=== PATIENT | male | born 1940 | race Caucasian/White ===

== ENCOUNTER 2021-07-28 01:04 | Day surgery (SDC) | payer MEDICARE, BC, SELFPAY ==
[2021-07-27 13:51] VITALS: BMI 26.6
[2021-07-28 10:51] VITALS: BP 133/80; PULSE 49; RESP 14; TEMP 36.2; O2SAT 100
[2021-07-28 10:53] VITALS: BMI 26.6
--- NOTE | 2021-07-28 11:35 | WPDMODSED ---
Moderate Sedation Note-Pt Data Patient Data Diagnosis: Paroxysmal atrial fibrillation with palpitations Present Complaint: Palpitations Procedure to be performed/Plan: Implantation of loop recorder Allergies Allergy/AdvReac Type Severity Reaction Status Date / Time acetaminophen [From Percocet] Allergy Hypotension Verified 07/27/21 14:20 morphine AdvReac Hypotension Verified 07/27/21 14:20 Opioids - Morphine Analogues AdvReac Hypotension Verified 07/27/21 14:20 oxycodone AdvReac Nausea and Verified 07/27/21 14:20 Vomiting Home Medications Medication Instructions Recorded Confirmed Type apixaban [Eliquis] 5 mg PO BID 07/17/21 07/27/21 History atorvastatin 40 mg PO DAILY 07/17/21 07/27/21 History famotidine 20 mg PO HS 07/17/21 07/27/21 History ketoconazole 1 applic TOPICAL PRN 07/17/21 07/27/21 History meloxicam 15 mg PO PRN 07/17/21 07/27/21 History mometasone [Elocon] 0.1 applic TOPICAL PRN 07/17/21 07/27/21 History pantoprazole 40 mg PO DAILY 07/17/21 07/27/21 History pregabalin 75 mg PO BID 07/17/21 07/27/21 History sildenafil 100 mg PO PRN 07/17/21 07/27/21 History zolpidem 10 mg PO HS 07/17/21 07/27/21 History Sedation/Anesthesia: No previous sedation/anesthesia problems (including family history). PMFSH Social History Social History Smoking status: Never smoker Substance use type: does not use Living arrangements: with family Spiritual care concerns: No Mod Sed Physical Exam Physical Exam Pre Procedural Exam: Normal: Appearance (Pleasant elderly man no distress), Neck, Throat, Airway, Lungs, Heart Size, Heart Rate, Heart Rhythm, Neuro Exam and Extremities Hours since solid foods: 12 Hours since liquid intake: 12 Mallampati Classification: class II Internal Medicine - PN: Obj Da Vital Signs Vital Signs: Vital Signs - 24 hr 07/28/21 10:51 Temperature 36.2 C L Pulse Rate 49 L Respiratory Rate 14 Blood Pressure 133/80 Pulse Oximetry 100 ASA Classification/Sedation ASA Classification/Sedation ASA Class: II Emergent: No Risks: Risks, benefits and alternatives explained and patient/family accepted plan for sedation. Patient re-evaluated immediately prior to sedation.
[2021-07-28 11:38] VITALS: BP 133/80; PULSE 61; RESP 16; O2SAT 98
--- NOTE | 2021-07-28 11:56 | P.PCNCC_ITS ---
Cardiac Cath Procedure Note Date of procedure:: 07/28/21 Performing physician:: Angel Skinner MD Indication:: Paroxysmal atrial fibrillation with palpitation Procedure Procedure performed:: Implantation of Biotronik Biomonitor 3 loop recorder Access site:: Left anterior chest wall Estimated blood loss:: Minimal Procedure note:: Patient was brought to the ear mold laboratory technician holding area where the left anterior chest wall was prepped and draped in the usual fashion. A mary anne was made in the 4th intercostal space in the mid clavicular line. 20 cc of 1% lidocaine was injected to provide local anesthetic. The device was implanted then using the puncture blade for the creation of the pocket and using the insertion tool provided. Insertion of the loop recorder was uneventful. Manual pressure was held for a short time because of some cutaneous oozing. After this the wound was dressed with a drop of bio glue and a Band-Aid. Findings:: As above Conclusion:: Uneventful implantation of bio monitor 3 Biotronik loop recorder. Angel Skinner MD [facility]
[2021-07-28 12:05] VITALS: BP 134/78; PULSE 47; RESP 16; O2SAT 100
--- NOTE | 2021-07-28 13:12 | SUR.OPER ---
1220 - D/C instructions reviewed with pt.
== END 2021-07-28 12:20 | disposition home or self-care (01) ==
PROVIDERS: PCP Internal Medicine; Visit Provider Specialist
PROC: (CPT 33285; principal; 2021-07-28 11:30)
DX: I48.0 Paroxysmal atrial fibrillation (principal)
CPT/HCPCS: 33285; C1764

== ENCOUNTER 2025-02-20 18:54 | Emergency (ER) | payer MEDICARE, BC, SELFPAY ==
--- NOTE | ~2025-02-20 | XR_ITS ---
HISTORY: fall, prox humerus pain COMPARISON: None TECHNIQUE: 3 views of the right shoulder were performed FINDINGS: Post conventional right shoulder arthroplasty. Irregular transverse lucency within the glenoid fossa for which acute fracture is suspected. No periprosthetic fracture is appreciated within the right humerus. The acromioclavicular joint space demonstrates narrowing with osteophyte formation. The visualized portion of the adjacent right lung is clear. IMPRESSION: Possible acute fracture within the lower third of the glenoid fossa, as detailed above. Reviewed, dictated and finalized at location A. IMPRESSION: Possible acute fracture within the lower third of the glenoid lucina a, as detailed above.
--- NOTE | ~2025-02-20 | XR_ITS ---
HISTORY: fall medial pain COMPARISON: None TECHNIQUE: 4 views of the left knee were performed FINDINGS: No acute or subacute fracture, erosion, lytic or sclerotic lesion. Medial and lateral tibiofemoral joint space narrowing is identified with chondrocalcinosis within the tibiofemoral joint space. Osteophytic bridging is also noted. Narrowing of the patellofemoral joint space is present.. No suprapatellar joint effusion is identified. The infrapatellar joint space is clear. IMPRESSION: Significant degenerative disease without acute fracture. Reviewed, dictated and finalized at location A.
--- NOTE | ~2025-02-20 | XR_ITS ---
HISTORY: fall lt lower rib pain COMPARISON: None TECHNIQUE: 3 views of the left ribs were performed along with a PA view of the chest FINDINGS: No acute displaced fracture is appreciated. Bone mineralization is age-appropriate. Loop recorder projects to the left of midline. The remainder of the cardiomediastinal silhouette is otherwise unremarkable. The lungs are clear IMPRESSION: No acute displaced rib fracture. The lungs are clear. Reviewed, dictated and finalized at location A.
--- OUTSIDE RECORDS SUMMARY | 2025-02-20 18:57 | XMS_ITS | Patient Health Record ---
Author Organization [facility] [place] Address [address] [place] [address] Care Team Providers Care Outside Sales Representative Insurance Name Role Phone Jhonathan Caldwell Unavailable [phone] Allergies Allergen (clinical drug ingredient) Drug/Non Drug Allergy documented on EMR Reaction Allergy Type Onset Date Status morphine Morphine Sulfate (PF) Unknown Drug Allergy Active oxycodone Oxycodone HCl Unknown Drug Allergy Act gaby acetaminophen / oxycodone Percocet Unknown Drug Allergy Active Reason For Referral No Information Medications Medication SIG (Take, Route, Frequency, Duration) Notes Start Date End Date Status Zolpidem Tartrate ER 12.5 MG 1 tablet at bedtime as needed Orally Once a day Active Atorvastatin Calcium 40 MG 1 tablet Orally Once a day for 90 Active Ketoconazole 2 % (Prior Auth: Rx Ref#:[id number]) External for 15 Not-Taking Lyrica 75 MG 1 capsule Orally Twi ce a day for 90 days 01/04/2022 Active Gabapentin 300 MG 1 capsule Externally Once a day Active Meloxicam 15 MG 1 tablet Orally Once a day for 30 Active Pantoprazole Sodium 40 MG 1 tablet Orall y Once a day for 90 Active Aspirin 81 MG 1 tablet Orally Once a day Active traMADol HCl 50 MG (Schedule IV Drug) (Prior Auth: Rx Ref#:[id number]) Oral for 10 Not-Taking Celecoxib 200 MG (Prior Auth: Rx Ref#:[id number]) Oral for 30 Not-Taking HYDROcodone-Acetaminophen 5-325 MG (Schedule II Drug) (Prior Auth: Rx Ref#:[id number]) Oral for 10 Not-Taking Levitra 20 MG (Prior Auth: Rx Ref#:[id number]) Oral for 30 Not-Taking Social History Tobacco Use: Social History Observation Description Date Details (start date - stop date) Never Smoker NA - NA Tobacco Use/Smoking Question Answer Notes Are you a nonsmoker Problems Problem Type SNOMED Code ICD Code Onset Dates Problem Status W/U Status Risk Notes Problem 210724597516323 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) Active confirmed Problem 0253466 Radiculopathy of lumbosacral region (M54.17) Active confirmed Problem 02000959 DDD (degenerative disc disease), 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) Active confirmed Problem 14770942812451088 History of lumbar laminectomy (Z98.890) Active confirmed Plan Of Treatment No Information Insurance Providers Payer Name Payer Address Payer Phone Subscriber Number Group Number Insured Name Patient Relationship to Insured Coverage Start Date Coverage End Date MEDICARE SERVICES [address] [address] [place], [place] [id number] null, null Self - patient is the insured Medications Administered Medication Instructions Date of Administration Dosage Notes Bilateral L5/S1 SESI 10/06/2018 Bilateral L5/S1 SESI 02/16/2019 Bilateral L5/S1 SESI 09/22/2019 Bilateral L5/S1 SESI 03/30/2020 Bilateral L5/S1 SESI 09/13/2020 Caudal GINA 04/14/2018 Medical (General) History Medical History History ICD Code prostate cancer Skin cancer Surgical History Surgery Date(Month/Year) lumbar decompresion hip right shoulder Prostate removed toe Knee Face. tonsillectomy
--- OUTSIDE RECORDS SUMMARY | 2025-02-20 18:57 | XMS_ITS | Continuity of Care Document ---
Author Name [facility] Organization [facility] Care Team Providers Care Video Games Storywriter Name Role Phone [facility] Unavailable Unavailable Problems Combined list of problems from Department of Defense and Veterans Affairs facilities. It does not include entries that were removed or entered in error. Problem Status Onset Date Problem Type Date of Resolution Comments Source AF- Atrial Fibrillation (SCT 10492842) Active Condition [facility] Anticoagulant effect Active Condition [facility] Bilateral hearing loss (SCT 43941903) - Unspecified hearing loss (ICD-9-CM 389.9 Active Condition [facility] Carcinoma of prostate (SCT 059195025) - Malignant neoplasm of prostate (ICD-9-CM Active Condition [facility] Chronic low back pain Active Condition [facility] Erectile Dysfunction (SCT 778725742) Active Condition [facility] Exposure to potentially hazardous substance ([facility] [id number]) Active Condition Dec 12 4 Entered By: BETH DU Comment: Entered automatically through SINDY Problem List documentation program [facility] Exposure to potentially hazardous substance ([facility] [id number]) Active Condition February 04 4 Entered By: PERI UNGER Comment: Entered automatically through SINDY Problem List documentation program [facility] Gastroesophageal Reflux Disease (SCT 289394617) - Esophageal reflux (ICD-9-CM 53 Active Condition [facility] GERD - Gastro-Esophageal Reflux Disease (SCT 367325565) Active Condition [facility] Hyperlipidemia (SCT 96666918) Active Condition [facility] Hyperlipidemia (SCT 51725072) - Other and unspecified hyperlipidemia (ICD-9-CM 2 Active Condition [facility] Long-term current use of anticoagulant Active Condition [facility] OA - Osteoarthritis (SCT 347337854) Active Condition [facility] Paroxysmal atrial fibrillation Active Condition [facility] Peripheral neuropathic pain Active Condition Dec 29 1 Entered By: NANCY JARA Comment: RELATAED TO LUMBAR STENOSIS [facility] Routine General Medical Examination at a Health Care Facility * - Routine genera Active Condition [facility] Spinal stenosis of lumbar region Active Condition [facility] Therapeutic drug effect Active Condition [facility] VACCIN FOR INFLUENZA - Need for prophylactic vaccination and inoculation, influe Active Condition [facility] Diagnosis: ICD-10-CM Z51.81 Encounter for therapeutic drug level monitoring Active Diagnosis [facility] Diagnosis: ICD-10-CM I48.0 Paroxysmal atrial fibrillation Active Diagnosis [facility] Diagnosis: ICD-10-CM Z79.01 supervisor intermediates (current) use of anticoagulants Active Diagnosis [facility] Diagnosis: ICD-10-CM Z79.899 Other usp (current) drug therapy Active Diagnosis [facility] Medications Combined list of outpatient medications from Department of Defense and Veterans Affairs facilities.Medications provided include 1) outpatient medications from the last 15 months, and 2) patient-reported medications. Medication Details Route Status Patient Instructions Prescription Expires Prescription Number Last Dispense Date Ordering Provider Order Date Order Qty Source APIXABAN 5MG TAB TAKE ONE TABLET BY MOUTH TWICE A DAY FOR ANTICOAG ULATION ORAL ACTIVE 02/09/2026 [id number] RAGHU SRINIVASAN 2024 180 [facility] N APIXABAN 5MG TAB TAKE ONE TABLET BY MOUTH TWICE A DAY FOR ANTICOAG ULATION ORAL DISCONT INUED 06/27/2025 [id number] Maykel BENDER 2023 180 [facility] APIXABAN 5MG TAB TAKE ONE TABLET BY MOUTH TWICE A DAY FOR ANTICOAG ULATION ORAL DISCONT INUED 01/30/2025 [id number] Maykel BENDER 2023 180 [facility] ATORVASTATI N CA 40MG TAB TAKE ONE TABLET BY MOUTH DAILY ORAL ACTIVE GISSEL JAIMES 2022 [facility] ATORVASTATI N CA 80MG TAB TAKE ONE-HALF TABLET BY MOUTH ONCE A DAY ORAL ACTIVE Rommel GRIFFITHSISON 2023 [facility] CYANOCOBALA MIN 1000MCG TAB TAKE ONE TABLET BY MOUTH ONCE A DAY ORAL 01/29/2025 [id number] Maykel BENDER 2023 100 [facility] CYANOCOBALA MIN 1000MCG TAB TAKE ONE TABLET BY MOUTH ONCE A DAY ORAL ACTIVE GRIFFITHSRommel SUSAN 2023 [facility] FAMOTIDINE 20MG TAB TAKE ONE TABLET BY MOUTH ONCE A DAY ORAL ACTIVE Rommel GRIFFITHS 2023 [facility] FAMOTIDINE 20MG TAB TAKE ONE TABLET BY MOUTH AT BEDTIME ORAL ACTIVE ESTEFANI,A LDENE 2020 [facility] METOPROLOL TARTRATE 50MG TAB TAKE ONE-HALF TABLET BY MOUTH ONCE A DAY NEEDED ORAL ACTIVE Rommel GRIFFITHS 2023 [facility] PANTOPRAZOL E NA 40MG TAB,EC TAKE ONE TABLET BY MOUTH EVERY MORNING BEFORE A MEAL ORAL ACTIVE Rommel GRIFFITHS 2023 [facility] PANTOPRAZOL E NA 40MG TAB,EC TAKE ONE TABLET BY MOUTH EVERY MORNING BEFORE EATING ORAL ACTIVE ESTEFANI,A LDENE 2020 [facility] POTASSIUM CHLORIDE 20MEQ TAB,SA (DISPERSIBL E) TAKE ONE-HALF TABLET BY MOUTH ONCE A DAY ORAL ACTIVE Rommel GRIFFITHS 2023 [facility] TADALAFIL 20MG TAB TAKE ONE TABLET BY MOUTH EVERY WEEK NEEDED ORAL ACTIVE Rommel GRIFFITHS 2023 [facility] VARDENAFIL HCL 20MG TAB TAKE ONE TABLET BY MOUTH UD ORAL ACTIVE CODLING,A LDENE 2020 [facility] ZOLPIDEM TARTRATE 10MG TAB TAKE ONE TABLET BY MOUTH AT BEDTIME NEEDED ORAL ACTIVE CODLING,A LDENE 2020 [facility] ZOLPIDEM TARTRATE 5MG TAB TAKE ONE TABLET BY MOUTH AT BEDTIME NEEDED ORAL ACTIVE Rommel GRIFFITHS [address] [facility] Allergies, Adverse Reactions, Alerts Combined list of allergies from Department of [facility] and [facility] Affairs facilities. It does not include entries that were removed or entered in error. Substance Category Reaction Severity Reaction type Status Date Reported Comments Source MORPHINE Propensity to adverse reactions to drug (finding) active 3 [facility] MORPHINE Propensity to adverse reactions to drug (finding) Bradycardi a, Low blood pressure active 1 [facility] PERCOCET Propensity to adverse reactions to drug (finding) Low blood pressure active 3 [facility] Immunizations Combined list of available immunizations from the Department of [facility] and [facility] Affairs facilities. Immunization Series Date Given Administered By Site Reaction Lot Number CVX Code Drug Bowling Ball Finisher Status Comments Source TDAP 2022 ASHLYN MACHADO RIGHT DELTO ID [id number] 115 complet ed [facility] ZOSTER RECOMBINANT 2 2022 ASHLYN MACHADO LEFT DELTO ID [id number] 187 complet ed [facility] ZOSTER RECOMBINANT 1 2021 187 complet ed [facility] INFLUENZA, UNSPECIFIED FORMULATION 2 2021 88 complet ed HISTORICA L INFORMATI ON - FROM OTHER [facility], [facility] N INFLUENZA VACCINE, QUADRIVALENT, ADJUVANTED 2 2021 205 complet ed HISTORICA L INFORMATI ON - FROM OTHER [facility], [facility], [facility] N INFLUENZA, UNSPECIFIED FORMULATION 2020 88 complet ed [facility] INFLUENZA, UNSPECIFIED FORMULATION 1 2020 88 complet ed HISTORICA L INFORMATI ON - FROM OTHER [facility], [facility], [facility] N COVID-19 (HuddleApp), MRNA, LNP-S, PF, 30 MCG/0.3 ML DOSE 2 2020 208 complet ed HISTORICA L INFORMATI ON - FROM OTHER [facility], [facility] N COVID-19 (HuddleApp), MRNA, LNP-S, PF, 30 MCG/0.3 ML DOSE 1 2020 208 complet ed HISTORICA L INFORMATI ON - FROM OTHER REGISTRY, [facility] N INFLUENZA, HIGH-DOSE, QUADRIVALENT 1 2019 197 complet ed HISTORICA L INFORMATI ON - FROM OTHER REGISTRY, [facility] N INFLUENZA, UNSPECIFIED FORMULATION 2019 88 complet ed [facility] INFLUENZA, TRIVALENT, ADJUVANTED 2019 168 complet ed [facility] INFLUENZA, HIGH DOSE SEASONAL 1 2018 135 complet ed HISTORICA L INFORMATI ON - FROM OTHER REGISTRY, [facility] N INFLUENZA, UNSPECIFIED FORMULATION 2 2018 88 complet ed HISTORICA L INFORMATI ON - FROM OTHER REGISTRY, [facility] N INFLUENZA, UNSPECIFIED FORMULATION 2 2017 88 complet ed HISTORICA L INFORMATI ON - FROM OTHER REGISTRY, [facility] N INFLUENZA, HIGH DOSE SEASONAL 1 2017 135 complet ed HISTORICA L INFORMATI ON - FROM OTHER REGISTRY, [facility] N INFLUENZA, SEASONAL, INJECTABLE 1 2013 141 complet ed HISTORICA L INFORMATI ON - FROM OTHER REGISTRY, [facility] N INFLUENZA, UNSPECIFIED FORMULATION 2012 88 complet ed [facility] PNEUMOCOCCAL, UNSPECIFIED FORMULATION 2012 109 complet ed [facility] TD(ADULT) UNSPECIFIED FORMULATION 2012 139 complet ed Right Deltoid [facility] TDAP 2012 115 complet ed Right Deltoid [facility] PNEUMOCOCCAL POLYSACCHARID E PPV23 2012 33 complet ed [facility] Results Combined list of recent chemistry, hematology and other laboratory results from Department of Defense and Veterans Affairs, ranging from 15 months to all on record, depending upon the facility. Order Name Results Value Reference Range Date Interpretation Specimen Comments Source TSH W/ REFLEX FT4 (STL) THYROTROPIN [UNITS/VOLUM E] IN SERUM OR PLASMA 2.298 u[IU]/ mL 0.47 - 5 01/28 Specimen Type: PLASMA Comment: No hemolysis noted. Ordering Provider: NANCY BENDER Report Released Date/Time: January 29, 2024 01:09 PM Reporting Lab: [facility] [address] [facility] [address] Performing Lab: [facility] [address] [facility] [address] [facility] VITAMIN D, 25-HYDROXY 25-HYDROXYVI TAMIN D3 [MASS/VOLUME ] IN SERUM OR PLASMA 31.6 ng/mL 30 - 96 01/28 Specimen Type: SERUM No comment entered. Ordering Provider: NANCY BENDER Report Released Date/Time: January 29, 2024 01:09 PM Reporting Lab: [facility] [address] [place] [phone] Performing Lab: [facility] [address] [place] [phone] [facility] COMPREHENSI VE METABOLIC PANEL CREATININE [MASS/VOLUME ] IN SERUM OR PLASMA 1.17 mg/dL 0.7 - 1.3 01/28 Specimen Type: PLASMA Comment: No hemolysis noted. Ordering Provider: NANCY BENDER Report Released Date/Time: January 29, 2024 01:09 PM Reporting Lab: [facility] [address] [facility] [address] Performing Lab: [facility] [address] [facility] [address] [facility] COMPREHENSI VE METABOLIC PANEL UREA NITROGEN [MASS/VOLUME ] IN SERUM OR PLASMA 16.8 mg/dL 9.0 - 25.0 01/28 Specimen Type: PLASMA Comment: No hemolysis noted. Ordering Provider: NANCY BENDER Report Released Date/Time: January 29, 2024 01:09 PM Reporting Lab: [facility] [address] [facility] [address] Performing Lab: [facility] [address] [place] [phone] [facility] COMPREHENSI VE METABOLIC PANEL GLUCOSE [MASS/VOLUME ] IN SERUM OR PLASMA 98 mg/dL 72 - 99 01/28 Specimen Type: PLASMA Comment: No hemolysis noted. Ordering Provider: NANCY BENDER Report Released Date/Time: January 29, 2024 01:09 PM Reporting Lab: [facility] [address] [facility] [phone] Performing Lab: [facility] [address] [facility] [address] [facility] COMPREHENSI VE METABOLIC PANEL SODIUM [MOLES/VOLUM E] IN SERUM OR PLASMA 135 meq/L 136 - 145 01/28 L Specimen Type: PLASMA Comment: No hemolysis noted. Ordering Provider: NANCY BENDER Report Released Date/Time: January 29, 2024 01:09 PM Reporting Lab: [facility] [address] [facility] [address] Performing Lab: [facility] [address] [place] [phone] [facility] COMPREHENSI VE METABOLIC PANEL POTASSIUM [MOLES/VOLUM E] IN SERUM OR PLASMA 5.0 meq/L 3.5 - 5 01/28 Specimen Type: PLASMA Comment: No hemolysis noted. Ordering Provider: NANCY BENDER Report Released Date/Time: January 29, 2024 01:09 PM Reporting Lab: [facility] [address] [facility] [phone] Performing Lab: [facility] [address] [facility] [phone] [facility] COMPREHENSI VE METABOLIC PANEL CHLORIDE [MOLES/VOLUM E] IN SERUM OR PLASMA 103 meq/L 98 - 107 01/28 Specimen Type: PLASMA Comment: No hemolysis noted. Ordering Provider: NANCY BENDER Report Released Date/Time: January 29, 2024 01:09 PM Reporting Lab: [facility] [address] [facility] [phone] Performing Lab: [facility] [address] [facility] [phone] [facility] COMPREHENSI VE METABOLIC PANEL CARBON DIOXIDE, TOTAL [MOLES/VOLUM E] IN SERUM OR PLASMA 24 meq/L 22 - 01/28 Specimen Type: PLASMA Comment: No hemolysis noted. Ordering Provider: NANCY BENDER Report Released Date/Time: January 29, 2024 01:09 PM Reporting Lab: [facility] [address] [facility] [facility] [address] Performing Lab: [facility] [address] [facility] [facility] [phone] [place] [address] COMPREHENSI VE METABOLIC PANEL CALCIUM [MASS/VOLUME ] IN SERUM OR PLASMA 9.9 mg/dL 8.4 - 10.4 01/28 Specimen Type: PLASMA Comment: No hemolysis noted. Ordering Provider: NANCY BENDER Report Released Date/Time: January 29, 2024 01:09 PM Reporting Lab: [address] [phone] Performing Lab: [facility] [address] [facility] [address] [facility] COMPREHENSI VE METABOLIC PANEL PROTEIN [MASS/VOLUME ] IN SERUM OR PLASMA 7.4 g/dL 6 - 8.6 01/28 Specimen Type: PLASMA Comment: No hemolysis noted. Ordering Provider: NANCY BENDER Report Released Date/Time: January 29, 2024 01:09 PM Reporting Lab: [facility] [address] [place] [phone] Performing Lab: [facility] [address] [facility] [facility] [address] [facility] COMPREHENSI VE METABOLIC PANEL ALBUMIN [MASS/VOLUME ] IN SERUM OR PLASMA 4.1 g/dL 3.4 - 5 01/28 Specimen Type: PLASMA Comment: No hemolysis noted. Ordering Provider: NANCY BENDER Report Released Date/Time: January 29, 2024 01:09 PM Reporting Lab: [facility] [address] [facility] [address] Performing Lab: [facility] [address] [facility] [phone] [facility] COMPREHENSI VE METABOLIC PANEL BILIRUBIN.TO MATT [MASS/VOLUME ] IN SERUM OR PLASMA 0.9 mg/dL 0.2 - 1.2 01/28 Specimen Type: PLASMA Comment: No hemolysis noted. Ordering Provider: NANCY BENDER Report Released Date/Time: January 29, 2024 01:09 PM Reporting Lab: [address] [phone] Performing Lab: [address] [phone] COMPREHENSI VE METABOLIC PANEL ALKALINE PHOSPHATASE [ENZYMATIC ACTIVITY/VOL UME] IN SERUM OR PLASMA 120 U/L 40 - 150 01/28 Specimen Type: PLASMA Comment: No hemolysis noted. Ordering Provider: NANCY BENDER Report Released Date/Time: January 29, 2024 01:09 PM Reporting Lab: [address] [phone] Performing Lab: [phone] [place] [address] COMPREHENSI VE METABOLIC PANEL ASPARTATE AMINOTRANSFE RASE [ENZYMATIC ACTIVITY/VOL UME] IN SERUM OR PLASMA 27 U/L 5 - 34 01/28 Specimen Type: PLASMA Comment: No hemolysis noted. Ordering Provider: NANCY BENDER Report Released Date/Time: January 29, 2024 01:09 PM Reporting Lab: [facility] [address] [place] [phone] Performing Lab: [address] [phone] [place] [address] COMPREHENSI VE METABOLIC PANEL ALANINE AMINOTRANSFE RASE [ENZYMATIC ACTIVITY/VOL UME] IN SERUM OR PLASMA 18 U/L 8 - 40 01/28 Specimen Type: PLASMA Comment: No hemolysis noted. Ordering Provider: NANCY BENDER Report Released Date/Time: January 29, 2024 01:09 PM Reporting Lab: [facility] [address] [facility] [address] Performing Lab: [facility] [address] [facility] [address] [facility] COMPREHENSI VE METABOLIC PANEL GLOMERULAR FILTRATION RATE/1.73 SQ M.PREDICTED [VOLUME RATE/AREA] IN SERUM, PLASMA OR BLOOD BY CREATININE-B ASED FORMULA (CKD-EPI 2020) 61.9 60 01/28 Specimen Type: PLASMA Comment: No hemolysis noted. Ordering Provider: NANCY BENDER Report Released Date/Time: January 29, 2024 01:09 PM Reporting Lab: [facility] [address] [facility] [phone] Performing Lab: [facility] [address] [place] [phone] [facility] LIPID PANEL (STL) CHOLESTEROL [MASS/VOLUME ] IN SERUM OR PLASMA 149 mg/dL 0 - 200 01/28 Specimen Type: PLASMA Comment: No hemolysis noted. Ordering Provider: NANCY BENDER Report Released Date/Time: January 29, 2024 01:09 PM Reporting Lab: [facility] [address] [facility] [phone] Performing Lab: [facility] [address] [place] [phone] [facility] LIPID PANEL (STL) TRIGLYCERIDE [MASS/VOLUME ] IN SERUM OR PLASMA 78 mg/dL 0 - 150 01/28 Specimen Type: PLASMA Comment: No hemolysis noted. Ordering Provider: NANCY BENDER Report Released Date/Time: January 29, 2024 01:09 PM Reporting Lab: [facility] [address] [facility] [phone] Performing Lab: [facility] [address] [facility] [phone] [facility] LIPID PANEL (STL) CHOLESTEROL IN LDL [MASS/VOLUME ] IN SERUM OR PLASMA BY CALCULATION 87 mg/dL 01/28 Specimen Type: PLASMA Comment: No hemolysis noted. Ordering Provider: NANCY BENDER Report Released Date/Time: January 29, 2024 01:09 PM Reporting Lab: [facility] [address] [place] [phone] Performing Lab: [facility] [address] [place] [phone] [facility] LIPID PANEL (STL) CHOLESTEROL IN HDL [MASS/VOLUME ] IN SERUM OR PLASMA 46 mg/dL 40 01/28 Specimen Type: PLASMA Comment: No hemolysis noted. Ordering Provider: NANCY BENDER Report Released Date/Time: January 29, 2024 01:09 PM Reporting Lab: [facility] [address] [place] [phone] Performing Lab: [facility] [address] [place] [phone] [facility] CBC LEUKOCYTES [#/VOLUME] IN BLOOD BY AUTOMATED COUNT 8.1 10*3/u L 3.6 - 11.2 01/28 Specimen Type: BLOOD No comment entered. Ordering Provider: NANCY BENDER Report Released Date/Time: January 29, 2024 01:09 PM Reporting Lab: [facility] [address] [facility] [phone] Performing Lab: [facility] [address] [place] [phone] [facility] CBC ERYTHROCYTES [#/VOLUME] IN BLOOD BY AUTOMATED COUNT 4.64 10*6/u L 4.10 - 5.70 01/28 Specimen Type: BLOOD No comment entered. Ordering Provider: NANCY BENDER Report Released Date/Time: January 29, 2024 01:09 PM Reporting Lab: [facility] [address] [facility] [address] Performing Lab: [facility] [address] [place] [phone] [facility] CBC HEMOGLOBIN [MASS/VOLUME ] IN BLOOD 14.1 g/dL 13.1 - 16.8 01/28 Specimen Type: BLOOD No comment entered. Ordering Provider: NANCY BENDER Report Released Date/Time: January 29, 2024 01:09 PM Reporting Lab: [facility] [address] [place] [phone] Performing Lab: [facility] [address] [place] [phone] [place] [address] CBC HEMATOCRIT [VOLUME FRACTION] OF BLOOD 41.7 38.2 - 48.4 01/28 Specimen Type: BLOOD No comment entered. Ordering Provider: NANCY BENDER Report Released Date/Time: January 29, 2024 01:09 PM Reporting Lab: [facility] [address] [place] [phone] Performing Lab: [facility] [address] [place] [phone] [place] [address] CBC MCV [ENTITIC VOLUME] BY AUTOMATED COUNT 89.9 fL 80.0 - 100.0 01/28 Specimen Type: BLOOD No comment entered. Ordering Provider: NANCY BENDER Report Released Date/Time: January 29, 2024 01:09 PM Reporting Lab: [facility] [address] [place] [phone] Performing Lab: [facility] [address] [place] [phone] [place] [address] CBC MCH [ENTITIC MASS] BY AUTOMATED COUNT 30.4 pg 27.0 - 34.0 01/28 Specimen Type: BLOOD No comment entered. Ordering Provider: NANCY BENDER Report Released Date/Time: January 29, 2024 01:09 PM Reporting Lab: [facility] [address] [place] [phone] Performing Lab: [facility] [address] [place] [phone] [facility] CBC MCHC [MASS/VOLUME ] BY AUTOMATED COUNT 33.8 g/dL 33.0 - 36.0 01/28 Specimen Type: BLOOD No comment entered. Ordering Provider: NANCY BENDER Report Released Date/Time: January 29, 2024 01:09 PM Reporting Lab: [facility] [address] [place] [phone] Performing Lab: [facility] [address] [place] [phone] [facility] CBC PLATELETS [#/VOLUME] IN BLOOD BY AUTOMATED COUNT 209 10*3/u L 150 - 400 01/28 Specimen Type: BLOOD No comment entered. Ordering Provider: NANCY BENDER Report Released Date/Time: January 29, 2024 01:09 PM Reporting Lab: [facility] [address] [place] [phone] Performing Lab: [facility] [address] [place] [phone] [place] [address] CBC PLATELET MEAN VOLUME [ENTITIC VOLUME] IN BLOOD BY AUTOMATED COUNT 12.6 fL 7.5 - 11.2 01/28 H Specimen Type: BLOOD No comment entered. Ordering Provider: NANCY BENDER Report Released Date/Time: January 29, 2024 01:09 PM Reporting Lab: [facility] [address] [place] [phone] Performing Lab: [facility] [address] [place] [phone] [place] [address] CBC ERYTHROCYTE DISTRIBUTION WIDTH [RATIO] BY AUTOMATED COUNT 12.8 11.8 - 15.1 01/28 Specimen Type: BLOOD No comment entered. Ordering Provider: NANCY BENDER Report Released Date/Time: January 29, 2024 01:09 PM Reporting Lab: [facility] [address] [place] [phone] Performing Lab: [facility] [address] [place] [phone] [facility] CBC LYMPHOCYTES/ 100 LEUKOCYTES IN BLOOD BY AUTOMATED COUNT 42 01/28 Specimen Type: BLOOD No comment entered. Ordering Provider: NANCY BENDER Report Released Date/Time: January 29, 2024 01:09 PM Reporting Lab: [facility] [address] [facility] [address] Performing Lab: [facility] [address] [facility] [address] [facility] CBC MONOCYTES/10 0 LEUKOCYTES IN BLOOD BY AUTOMATED COUNT 8 01/28 Specimen Type: BLOOD No comment entered. Ordering Provider: NANCY BENDER Report Released Date/Time: January 29, 2024 01:09 PM Reporting Lab: [facility] [address] [facility] [address] Performing Lab: [facility] [address] [facility] [address] [facility] CBC NEUTROPHILS/ 100 LEUKOCYTES IN BLOOD BY AUTOMATED COUNT 49 01/28 Specimen Type: BLOOD No comment entered. Ordering Provider: NANCY BENDER Report Released Date/Time: January 29, 2024 01:09 PM Reporting Lab: [facility] [address] [facility] [address] Performing Lab: [facility] [address] [facility] [address] [facility] CBC EOSINOPHILS/ 100 LEUKOCYTES IN BLOOD BY AUTOMATED COUNT 1 01/28 Specimen Type: BLOOD No comment entered. Ordering Provider: NANCY BENDER Report Released Date/Time: January 29, 2024 01:09 PM Reporting Lab: [facility] [address] [facility] [address] Performing Lab: [facility] [address] [facility] [address] [facility] CBC BASOPHILS/10 0 LEUKOCYTES IN BLOOD BY AUTOMATED COUNT 0 01/28 Specimen Type: BLOOD No comment entered. Ordering Provider: NANCY BENDER Report Released Date/Time: January 29, 2024 01:09 PM Reporting Lab: [facility] [address] [facility] [address] Performing Lab: [facility] [address] [facility] [address] [facility] CBC LYMPHOCYTES [#/VOLUME] IN BLOOD BY AUTOMATED COUNT 3.35 10*3/u L 0.77 - 4.50 01/28 Specimen Type: BLOOD No comment entered. Ordering Provider: NANCY BENDER Report Released Date/Time: January 29, 2024 01:09 PM Reporting Lab: [address] [address] Performing Lab: [address] [phone] [place] [address] CBC MONOCYTES [#/VOLUME] IN BLOOD BY AUTOMATED COUNT 0.65 10*3/u L 0.19 - 0.80 01/28 Specimen Type: BLOOD No comment entered. Ordering Provider: NANCY BENDER Report Released Date/Time: January 29, 2024 01:09 PM Reporting Lab: [address] [address] Performing Lab: [phone] [place] [address] CBC NEUTROPHILS [#/VOLUME] IN BLOOD BY AUTOMATED COUNT 3.98 10*3/u L 2.10 - 8.00 01/28 Specimen Type: BLOOD No comment entered. Ordering Provider: NANCY BENDER Report Released Date/Time: January 29, 2024 01:09 PM Reporting Lab: [facility] [address] [place] [address] Performing Lab: [address] [address] [facility] CBC EOSINOPHILS [#/VOLUME] IN BLOOD BY AUTOMATED COUNT 0.05 10*3/u L 0.00 - 0.60 01/28 Specimen Type: BLOOD No comment entered. Ordering Provider: NANCY BENDER Report Released Date/Time: January 29, 2024 01:09 PM Reporting Lab: [facility] [address] [facility] [address] Performing Lab: [address] [address] [facility] CBC BASOPHILS [#/VOLUME] IN BLOOD BY AUTOMATED COUNT 0.03 10*3/u L 0.00 - 0.20 01/28 Specimen Type: BLOOD No comment entered. Ordering Provider: NANCY BENDER Report Released Date/Time: January 29, 2024 01:09 PM Reporting Lab: [address] [address] Performing Lab: [address] [address] [facility] HGA1C HEMOGLOBIN A1C/HEMOGLOB IN.TOTAL IN BLOOD 5.8 4.0 - 6.0 01/28 Specimen Type: BLOOD No comment entered. Ordering Provider: NANCY BENDER Report Released Date/Time: January 29, 2024 01:09 PM Reporting Lab: [address] [address] Performing Lab: [address] [address] [facility] Encounters Combined list of: 1) Encounters from Department of [facility] Affairs facilities going backup to the last 18 months, not all [place] inpatient encounters are included; 2) Encounters from the Department of Defense facilities going backup to 280 months. Location Location Details Encounter Type Encounter Number Reason For Visit Attending Provider ADM Date DC Date Status Disposition Source [facility] Outpatient Encounter [id number] 12/29 [facility] Outpatient Encounter [id number] 12/30 [facility] CASE MANAGEMENT [id number] KATELIN BUSTAMANTE 12/30 [facility] Outpatient Encounter [id number] GRIFFITHSANTHONY 01/05 [facility] MTMS BY PHARM ADDL 15 MIN [id number] Diagnos is: ICD-10- CM Z79.899 Other usp (curren t) drug therapy AYEANTHONY Rommel 01/05 [facility] MTMS BY PHARM EST 15 MIN [id number] Diagnos is: ICD-10- CM Z79.01 supervisor intermediates (curren t) use of anticoa gulanSTEFAN Montoya 01/22 [facility] OFF[facility] O/P NEW MOD 45 MIN [id number] Diagnos is: ICD-10- CM I48.0 Paroxys mal atrial fibrill ation NANCY BENDER 01/28 [facility] QNHP OL DIG ASSMT&MGMT 5-10 [id number] Diagnos is: ICD-10- CM I48.0 Paroxys mal atrial fibrill ation BELLA LEVI 01/29 [facility] MTMS BY PHARM EST 15 MIN [id number] Diagnos is: ICD-10- CM Z51.81 Encount er for therape utic drug level monitor EUSEBIA Rudolph 01/29 [facility] Outpatient Encounter [id number] 06/09 [facility] Outpatient Encounter [id number] 08/24 [facility] Outpatient Encounter [id number] 08/26 [facility] Outpatient Encounter [id number] 01/28 [facility] MTMS BY PHARM EST 15 MIN [id number] Diagnos is: ICD-10- CM Z51.81 Encount er for therape utic drug level monitor EUSEBIA Rudolph 02/08 [facility] Social History Combined list of available smoking, tobacco, and other social history from Department of Defense and Veterans Affairs facilities. Social History Type Response Date Comment Sourc e Tobacco smoking status NHIS [place]-TOBACCO NEVER USED 01/06/2024 [facility] History of tobacco use ND-TOBACCO NEVER USED 12/18/2022 [facility] History of tobacco use ND-TOBACCO NEVER USED 12/29/2020 [facility] History of tobacco use LIFETIME NON-USER OF TOBACCO 08/19/2013 [facility] Plan of Care List of future care activities from Department of Veterans Affairs facilities. Additional future care activities may be listed in the Assessment and Plan section. Date/Time Care Activity Care Activity Detail Facili ty 03/16/2025 AMBULATORY - MEDICINE AMBULATORY - MEDICI NE [facility]
--- OUTSIDE RECORDS SUMMARY | 2025-02-20 18:58 | XMS_ITS | Encounter Summary ---
Author Organization [facility] Address 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
--- OUTSIDE RECORDS SUMMARY | 2025-02-20 18:58 | XMS_ITS | Clinical Summary ---
Author Organization [facility] Address [address] [facility] [address] 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
--- OUTSIDE RECORDS SUMMARY | 2025-02-20 18:58 | XMS_ITS | Encounter Summary ---
Author Organization [employer] Address [address] [place] [address] Care Team Providers Care Alternative Medicine Practitioner Name Role Phone Andreia Wolf MD Primary Care Provider [phone] Encounter Details Date Type Department Care Team (Late st Contact Info) Description 02/27/2005 Outpatient Historical [facility] EM[facility] Deon Montalvo MD [address] 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
--- OUTSIDE RECORDS SUMMARY | 2025-02-20 18:58 | XMS_ITS | Encounter Summary ---
Author Organization [facility] Address [address] [facility] [address] [place] [address] Care Team Providers Care Radio Program Checker Name Role Phone Mikal Thomason MD Primary Care Provider [phone] Cynthia Donohue RN Unavailable [phone] Mariana Jay MD Primary Care Provide r Anette Montgomery MD Unavailable [phone] Lamont Richter MD Unavailable Encounter Details Date Type Department Care Team (Late st Contact Info) Description 09/17/2016 Orders Only [facility] Provider, MD Hanna [address] [place] [address] Social History Tobacco Use Types Packs/Day Years Used Date Smoking Tobacco: Never Alcohol Use Standard Drinks/Week Comments No 0 (1 standard drink = 0.6 oz pur e alcohol) Sex and Gender Information Value Date Recorded Sex Assigned at Not on file 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 Historical Provider [facility] DEBO SHEIKH Final Result documented in this encounter Visit Diagnoses Not on filedocumented in this encounter Additional Health Concerns Infection Onset Date Last Indicated Resolved Time COVID: Suspected 06/02/2021 06/02/2021 06/02/2021 4:12 PM CDT COVID: Suspected 07/13/2021 07/13/2021 07/13/2021 2:52 PM CDT COVID: Suspected 08/26/2023 08/26/2023 08/26/2023 7:07 PM PLASTIC SURGERY MANAGER COVID: Suspected 11/20/2023 11/20/2023 11/20/2023 8:25 PM CDT documented as of this encounter Care Teams Radio Program Checker Relationship Specialty Start Date End Date Mikal Thomason MD PCP - General 09/12/15 04/11/22 Mariana Jay MD [address] [place] [address] [address] [place] [address] PCP - General Family Medicine 04/12/22 Cynthia Donohue, MAGGIE [address] [place] [address] [address] [place] [address] Assistant Golf Professional 06/08/21 07/10/21 Anette Montgomery MD [address] [place] [address] [address] [place] [address] Consulting Physician Cardiology 04/12/22 04/22/24 [place] [address] [place] [address] [address] Consulting Physician Cardiovascular Disease 04/23/24 documented as of this encounter
--- OUTSIDE RECORDS SUMMARY | 2025-02-20 18:58 | XMS_ITS | Patient Health Record ---
Author Organization [facility] Address [address] [place] [address] Care Team Providers Care Heating And Blending Supervisor Name Role Phone Valery Prabhakar Unavailable [phone] Allergies Allergen (clinical drug ingredient) Drug/Non Drug Allergy documented on EMR Reaction Allergy Type Onset Date Status acetaminophen / oxycodone Percocet Unknown Drug Allergy 11/17/2021 active morphine Morphine Unknown Drug Allergy 10/26/2019 active oxycodone Oxycodone Unknown Drug Allergy 10/26/2019 active Reason For Referral No Information Medications Medication SIG (Take, Route, Frequency, Duration) Notes Start Date End Date Status Metoprolol Tartrate 25 MG Oral for 90 Days Active Albuterol Sulfate HFA 108 (90 Base) MCG/ACT Inhalation for 16 Days Active guaiFENesin-Codeine 100-10 MG/5ML Oral for 4 Days Active Eliquis Active Zolpidem Tartrate 10 MG Oral for 30 Days Active Atorvastatin Calcium 40 MG Oral for 90 Days Active Pantoprazole Sodium 40 MG Oral for 90 Days Active Famotidine 20 MG Oral for 90 Days Active Vital Signs Heart Rate 51 BPM 11/08/2024 Temperature 98.0 degrees Fahrenheit 11/08/2024 Respiratory Rate 18 BPM 11/08/2024 Oximetry 96 % 11/08/2024 Blood pressure diastolic 68 mm/Hg 11/08/2024 Height 67.00 in 11/08/2024 Blood pressure systolic 124 mm/Hg 11/08/2024 Weight 170 lbs 11/08/2024 BMI 26.62 kg/m2 11/08/2024 Encounters Encounter Location Date Provider Diagnosis [facility] [address] [place] [address] 11/08/2024 Valery Prabhakar Acute non-recurrent sinusitis, unspecified location J01.90 Assessments Encounter Date Diagnosis (ICD Code) Assessment Notes Treatment Notes Treatment Clinical Notes Section Notes 11/08/2024 Acute non-recurrent sinusitis, unspecified location (ICD-10 - J01.90) As needed Analgesics (Mortrin or Tylenol) Nasal saline irrigation for symptomatic relief Take medications as Directed Return to clinic after 72 hours if no improvement Encourage Fluids Cool mist humidifier at night - Seek medical care if develop high fever that is still present after two days of antibiotic treatment, Increasing pain, severe headaches, or toothache, nausea, vomiting, headache, dizziness or drowsiness. Unusual swelling around the face or trouble seeing POC discussed with pt. who verbalized understanding of instructions. Plan Of Treatment No Information Insurance Providers Payer Name Payer Address Payer Phone Subscriber Number Group Number Insured Name Patient Relationship to Insured Coverage Start Date Coverage End Date MEDICARE [place] PART B [address] [address] [place] [phone] [id number] DEION WADDELL Self - patient is the insured [facility] [address] [place] [address] [id number] DEION WADDELL Self - patient is the insured Medical (General) History Medical History History ICD Code A- Fib
--- OUTSIDE RECORDS SUMMARY | 2025-02-20 18:58 | XMS_ITS | Encounter Summary ---
Author Organization [facility] Address 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
--- OUTSIDE RECORDS SUMMARY | 2025-02-20 18:58 | XMS_ITS | Encounter Summary ---
Author Organization [facility] Address 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
--- OUTSIDE RECORDS SUMMARY | 2025-02-20 18:58 | XMS_ITS | Encounter Summary ---
Author Organization [facility] Address 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 Gender Identity Not on file Sexual Orientation Not on file documented as of this encounter Plan of Treatment Not on file documented as of this encounter Procedures Procedure Name Priority Date/Time Associated Diagnosis Comments HEPATIC FUNCTION PANEL Routine 05/01/2005 9:22 AM CDT documented in this encounter Results * HEPATIC FUNCTION PANEL (05/01/2005 9:22 AM CDT) AST 23 12 - 38 U/L INTERFACE SYSTEM ALKALINE PHOSPHATASE 120 40 - 129 U/L INTERFACE SYSTEM BILIRUBIN TOTAL 0.6 0.2 - 1.0 mg/dL INTERFACE SYSTEM ALBUMIN 4.1 3.4 - 4.8 g/dL INTERFACE SYSTEM TOTAL PROTEIN 7.8 6.3 - 8.6 g/dL INTERFACE SYSTEM ALT 18 0 - 41 U/L INTERFACE SYSTEM BILIRUBIN DIRECT 0.1 0.0 - 0.3 mg/dL INTERFACE SYSTEM 05/01/2005 9:22 AM CDT us Andreia Wolf MD CHEMISTRY ORDERABLES Final Re sult INTERFACE SYSTEM Refer to clinic/hospital department documented in this encounter Visit Diagnoses Diagnosis Other abnormal clinical finding- Primary documented in this encounter Care Teams Supervisor Slashing Department Relationship Specialty Start Date End Date Andreia Wolf MD [address] [place] [address] PCP - General 05/01/05 documented as of this encounter
--- OUTSIDE RECORDS SUMMARY | 2025-02-20 18:58 | XMS_ITS | Encounter Summary ---
Author Organization [facility] Address [address] [place] [address] Phone Care Team Providers Care Piping Blocker Name Role Phone Mikal Thomason MD Primary Care Provider [phone] Cynthia Donohue RN Unavailable [phone] Mariana Jay MD Primary Care Provide r Anette Montgomery MD Unavailable [phone] Lamont Richter MD Unavailable Encounter Details Date Type Department Care Team (Late st Contact Info) Description 09/04/2017 Orders Only [facility] ProviderHanna MD [address] [place] [address] Social History Tobacco Use Types Packs/Day Years Used Date Smoking Tobacco: Never Smokeless Tobacco: Never Alcohol Use Standard Drinks/Week Comments No 0 (1 standard drink = 0.6 oz pur e alcohol) Sex and Gender Information Value Date Recorded Sex Assigned at Not on file Legal Sex Male 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 us Historical Provider LAB BLOOD ORDERABLES Mona l Result documented in this encounter Visit Diagnoses Not on filedocumented in this encounter Additional Health Concerns Infection Onset Date Last Indicated Resolved Time COVID: Suspected 06/02/2021 06/02/2021 06/02/2021 4:12 PM CDT COVID: Suspected 07/13/2021 07/13/2021 07/13/2021 2:52 PM CDT COVID: Suspected 08/26/2023 08/26/2023 08/26/2023 7:07 PM SUPERVISOR DYER COVID: Suspected 11/20/2023 11/20/2023 11/20/2023 8:25 PM CDT documented as of this encounter Care Teams Piping Blocker Relationship Specialty Start Date End Date Mikal Thomason MD PCP - General 09/12/15 04/11/22 Mariana Jay MD [address] [place] [address] [address] [place] [address] PCP - General Family Medicine 04/12/22 Cynthia Donohue, MAGGIE [address] [place] [address] [address] [place] [address] Sales Promotion Officer 06/08/21 07/10/21 Anette Montgomery MD [address] [place] [place] [address] [address] [place] [address] Consulting Physician Cardiology 04/12/22 04/22/24 [place] [address] [address] [place] [address] Consulting Physician Cardiovascular Disease 04/23/24 documented as of this encounter
--- OUTSIDE RECORDS SUMMARY | 2025-02-20 18:58 | XMS_ITS | CONTINUITY OF CARE DOCUMENT ---
Author Name colby bowman Address Unknown Organization [facility] Address [address] [place] [address] Phone [phone] Care Team Providers Care Cell Tower Climber Name Role Phone Lamont Richter MD Unavailable [phone] Lamont Richter MD Unavailable [phone] Mariana Vazquez MD Unavailable PROBLEMS Condition Status Date Provider Notes HTN essential active Lamont Richter MD S/P Implantable Loop Recorde r-Biotronik ( MRI Safe) active Jenn Ursula Atrial fib paroxysmal active Thien Johnson i Shortness of breath active Thien Lee Snoring - ? sleep apnea active Thien angeles Mild SAMMY active Thien Lee Tricuspid regurgitation, moderate active Dudley Lee ENCOUNTERS Date Type Provider Location Encounter Diag nosis - In-person encounter Office Visit Lamont Richter MD [facility] - In-person encounter Office Visit Lamont Richter MD [facility] Mild OSATricuspid regurgitation, moderate - In-person encounter Office Visit Lamont Richter MD [facility] Atrial fib paroxysmalShortness of breathSnoring - ? sleep apnea VITAL SIGNS Date Observation Value Provider Body Mass Index (Ratio) 26.78 kg/m2 Tio Sahu blood pressure, diastolic 75 mm[Hg] [facility] blood [facility], systolic 125 mm[Hg] [facility] oxygen saturation, oximetry 99 % [facility] pulse rate 55 /min Letitia Agustin [facility] weight E&M 171 [lb_av] Letitia Agustin height E&M 67 [in_i] Letitia Agustin Body Mass Index (Ratio) 27.09 kg/m2 Grah am Jesus blood pressure, cuff size regular Ja rret blood pressure, diastolic 76 mm[Hg] Ja rret blood pressure, systolic 132 mm[Hg] Jar ret pulse rate 55 /min Arnav respiratory rate E&M 12 /min Arnav oxygen saturation, oximetry 99 % Arnav weight E&M 173 [lb_av] Arnav y height E&M 67 [in_i] Arnav y Body Mass Index (Ratio) 26.62 kg/m2 Grah am Jesus blood pressure, diastolic 68 mm[Hg] Li nkLogic blood pressure, systolic 117 mm[Hg] Shiela kLogic blood pressure, cuff size regular Fa [facility] Leyva blood pressure, diastolic 68 mm[Hg] Fa ith Leyva blood pressure, systolic 117 mm[Hg] Orestes th Leyva oxygen saturation, oximetry 98 % Arianna Leyva respiratory rate E&M 16 /min Arianna Rommel iller pulse rate 48 /min Arianna Leyva weight E&M 170 [lb_av] Arianna Leyva height E&M 67 [in_i] Arianna Leyva ALLERGIES Allergy Name Onset Date Reaction Criticality Status MORPHINE High Criticality active HISTORY OF MEDICATION USE Medication Status Instructions Dates Provider Indications Com ments metoprolol tartrate 25 mg tablet active Take 1 tablet by mouth twice a day Lamont Richter MD Eliquis 5 mg tablet active Take 1 tablet by mouth twice a day TAKE 1 TABLET BY MOUTH TWICE DAILY Lamont Richter MD metoprolol tartrate 25 mg tablet completed - Letitia Taveras atorvastatin 40 mg tablet active Arianna Leyva betamethasone dipropionate 0.05% ointment active Arianna Leyva cetirizine 5 mg tablet active Arianna Leyva famotidine 20 mg tablet active Arianna Leyva Protonix 40 mg tablet,delayed release (DR/EC) active Arianna Leyva potassium chloride 10 mEq tablet,ER particles/richard ls active Arianna Leyva zolpidem 10 mg tablet active Arianna Leyva SOCIAL HISTORY Date Observation Value Provider smoking status Never smoker Lamont Sanders social history reviewed E&M reviewed - no changes required Thien Lee smoking status Never smoker Arianna Leyva INSURANCE PROVIDERS Payer name Policy type / Coverage type Lawn red republican ID [facility] [id number] [place] B Medicare [id number] ADVANCE DIRECTIVES Name Date DISCUSSED - NO DECISION MADE TREATMENT PLAN Date Name Performer Cardiology Boubacar Sahu Cardiology: H is updated medication list for this problem includes: Metoprolol Tartrate 25 Mg Tablet (Metoprolol tartrate) ..... Take 1 tablet by mouth twice a day BP today: 125/75 P rior BP: 132/76 (09/11/2023) Boubacar Sahu Cardiology: E cho showed normal EF. Moderate tricuspid regurgitation. Myoview scan was normal. Calcium score was 227. I recommend to keep LDL at 70 or less. He has mild SAMMY, but he is not interested in treatment. He states his SOB is resolved. Boubacar Sahu Cardiology:paroxysma l, on ac c ontinue medical therapy I LR will now be covered by Dr lamas office Boubacar Sahu RPM order:RPM given to monitor his blood pressure while at home. Lamont Richter MD Cardiology:Echo show ed normal EF. Moderate tricuspid regurgitation. Myoview scan was normal. Calcium score was 227. I recommend to keep LDL at 70 or less. He has mild SAMMY, but he is not interested in treatment. He states his SOB is resolved. Thien Jesus Cardiology Thien Jesus Cardiology: H is updated medication list for this problem includes: Metoprolol Tartrate 25 Mg Tablet (Metoprolol tartrate) Thien Villanuevainari Cardiology:Echo show ed normal EF. Moderate tricuspid regurgitation. Myoview scan was normal. Calcium score was 227. I recommend to keep LDL at 70 or less. He has mild SAMMY, but he is not interested in treatment. He states his SOB is resolved. Thien Jesus Cardiology Thien Jesus Cardiology: H is updated medication list for this problem includes: Metoprolol Tartrate 25 Mg Tablet (Metoprolol tartrate) Thien Jesus Cardiology: H is updated medication list for this problem includes: Metoprolol Tartrate 25 Mg Tablet (Metoprolol tartrate) Thien Villanuevainari Date Name Carotid Duplex Bilat eral RPM (remote patient monitoring) CT, Coronary Calcium Score RPM (remote patient monitoring) Sleep Study Home Stress Exercise Card iolite Complete Echo HISTORY OF PROCEDURES Procedure Date Procedure Name Provider Procedure Notes S tatus Complex e/m visit add on Lamont Richter MD completed CT- Coronary CA score Lamont Richter MD completed
--- OUTSIDE RECORDS SUMMARY | 2025-02-20 18:58 | XMS_ITS | Encounter Summary ---
Author Organization [facility] Address [address] [place] [address] Care Team Providers Care Semiautomatic Taper Operator Name Role Phone Andreia Wlof MD Primary Care Provider [phone] Encounter Details Date Type Department Care Team (Latest Contact Info) Description 07/10/2005 Outpatient Historical [facility] Andreia Bernstein MD [address] [place] [address] OSTEOMYELITIS NOS-ANKLE (CMS/HCC) (Primary Dx) Social History Tobacco Use Types Packs/Day Years Used Date Smoking Tobacco: Never Assessed Sex and Gender Information Value Date Recorded Sex Assigned at Not on file Legal Sex Male 4:19 AM PROCESS EQUIPMENT OPERATOR Gender Identity Not on file Sexual Orientation Not on file documented as of this encounter Plan of Treatment Not on file documented as of this encounter Procedures Procedure Name Priority Date/Time Associated Diagnosis Comments CBC WITH DIFFERENTIAL Routine 07/10/2005 9:17 AM PROCESS EQUIPMENT OPERATOR CBC WITH DIFFERENTIAL Routine 07/10/2005 9:17 AM PROCESS EQUIPMENT OPERATOR SEDIMENTATION RATE Routine 07/10/2005 9: 17 AM PROCESS EQUIPMENT OPERATOR C-REACTIVE PROTEIN Routine 07/10/2005 9: 17 AM PROCESS EQUIPMENT OPERATOR PSA Routine 07/10/2005 9:17 AM PROCESS EQUIPMENT OPERATOR LIPID PANEL Routine 07/10/2005 9:17 AM PROCESS EQUIPMENT OPERATOR COMPREHENSIVE METABOLIC PANEL Routine 07/10/2005 9:17 AM PROCESS EQUIPMENT OPERATOR documented in this encounter Results * CBC WITH DIFFERENTIAL (07/10/2005 9:17 AM PROCESS EQUIPMENT OPERATOR) NEUTROPHILS 47 45 - 70 % INTERFAC E SYSTEM LYMPHOCYTES 44 16 - 45 % INTERFAC E SYSTEM MONOCYTES 8 3 - 13 % INTERFACE SYSTEM EOSINOPHILS 1 0 - 7 % INTERFAC E SYSTEM BASOPHILS 0 0 - 2 % INTERFACE SYSTEM NEUTROPHIL ABSOLUTE 2.75 1.90 - 7.00 K/uL INTERFACE SYSTEM LYMPHOCYTE ABSOLUTE 2.57 0.70 - 4.50 K/uL INTERFACE SYSTEM MONOCYTE ABSOLUTE 0.48 0.10 - 1.30 K/uL INTERFACE SYSTEM EOSINOPHIL ABSOLUTE 0.04 0.00 - 0.70 K/uL INTERFACE SYSTEM BASOPHILS ABSOLUTE 0.00 0.00 - 0.20 K/uL INTERFACE SYSTEM 07/10/2005 9:17 AM PROCESS EQUIPMENT OPERATOR Andreia Wolf MD HEMATOLOGY ORDERABLES Final R esult Performing Organization Address City/State/[facility] Co de Phone Number INTERFACE SYSTEM Refer to clinic/hospital department * CBC WITH DIFFERENTIAL (07/10/2005 9:17 AM PROCESS EQUIPMENT OPERATOR) WBC 5.8 4.0 - 9.8 K/uL INTERFACE SYSTEM RBC 4.97 4.50 - 5.40 M/uL INTERFACE SYSTEM HEMOGLOBIN 15.0 13.6 - 16.5 g/dL INTERFACE SYSTEM HEMATOCRIT 42.4 40.0 - 48.0 % INTERFACE SYSTEM MCV 85.3 82.0 - 99.0 fL INTERFACE SYSTEM MCH 30.2 27.2 - 32.6 pg INTERFACE SYSTEM MCHC 35.4 31.5 - 35.5 % INTERFACE SYSTEM RDW 13.2 11.5 - 14.5 % INTERFACE SYSTEM RDW-STDEV 40.8 37.1 - 48.7 fL INTERFACE SYSTEM PLATELETS 197 140 - 350 K/uL INTERFACE SYSTEM MPV 11.0 9.3 - 12.4 fL INTERFACE SYSTEM 07/10/2005 9:17 AM PROCESS EQUIPMENT OPERATOR Andreia Wolf MD HEMATOLOGY ORDERABLES Final R esult Performing Organization Address City/State/[facility] de Phone Number INTERFACE SYSTEM Refer to clinic/hospital department * SEDIMENTATION RATE (07/10/2005 9:17 AM PROCESS EQUIPMENT OPERATOR) ESR (SEDIMENTATION RATE) 26 0 - 30 mm/hr INTERFACE SYSTEM 07/10/2005 9:17 AM PROCESS EQUIPMENT OPERATOR us Andreia Wolf MD HEMATOLOGY ORDERABLES Final R esult Performing Organization Address [facility] Phone Number INTERFACE SYSTEM Refer to clinic/hospital department * PSA (07/10/2005 9:17 AM PROCESS EQUIPMENT OPERATOR) PSA 1.8 0.0 - 4.0 ng/mL INTERFACE SYSTEM Comment:Performed on [employer] E170 System 07/10/2005 9:17 AM PROCESS EQUIPMENT OPERATOR Andreia Wolf MD CHEMISTRY ORDERABLES Final Re sult Performing Organization Address [facility] Phone Number INTERFACE SYSTEM Refer to clinic/hospital department * C-REACTIVE PROTEIN (07/10/2005 9:17 AM PROCESS EQUIPMENT OPERATOR) CRP <0.5 0.0 - 0.8 mg/dL INTERFACE SYSTEM 07/10/2005 9:17 AM PROCESS EQUIPMENT OPERATOR us Andreia Wolf MD CHEMISTRY ORDERABLES Final Re rex Performing Organization Address [facility] Phone Number INTERFACE SYSTEM Refer to clinic/hospital department * (ABNORMAL) LIPID PANEL (07/10/2005 9:17 AM PROCESS EQUIPMENT OPERATOR) CHOLESTEROL 220(H) 100 - 199 mg/dL INTERFACE SYSTEM TRIGLYCERIDE 90 10 - 149 mg/dL INTERFACE SYSTEM HDL 65(H) 40 - 59 mg/dL INTERFACE SYSTEM LDL CALCULATED 137(H) <=99 mg/dL INTERFACE SYSTEM CHOL/HDL RATIO 3.4 2.0 - 5.0 INTER FACE SYSTEM Comment:See interpretive rick a section for risk classifications. LIPID PANEL COMMENT See below INTERFACE SYSTEM Comment: Adult ATP III Classifications: Cholesterol (mg/dL) Triglyceride (mg/dL) Desirable <200 Normal <150 Borderline 200 - 239 Borderline High 150 - 199 High >=240 High 200 - 499 Very High >=500 HDL Cholesterol (mg/dL) LDL (mg/dL) Low (increased risk) <40 Optimal <100 High (reduced risk) >=60 Near or above optimal 100 - 129 Borderline 130 - 159 High 160 - 189 Very High >=190 LDL calculation is not accurate if Triglycerides are greater than 400 mg /dL Pediatric NCEP Classifications: Cholesterol(<20 years),(mg/dL) Triglyceride Desirable <170 Pediatric classification Borderline 170 - 199 not defined. High >=200 HDL (<5 years) LDL (mg/dL) No Reference Range Established Desirable <110 Borderline 110 - 129 High >=130 07/10/2005 9:17 AM PROCESS EQUIPMENT OPERATOR us Andreia Wolf MD CHEMISTRY ORDERABLES Final Re sult INTERFACE SYSTEM Refer to clinic/hospital department * (ABNORMAL) COMPREHENSIVE METABOLIC PANEL (07/10/2005 9:17 AM PROCESS EQUIPMENT OPERATOR) GLUCOSE 102 65 - 109 mg/dL INTERFACE SYSTEM CREATININE 0.9 0.5 - 1.3 mg/dL INTERFACE SYSTEM CALCIUM 9.4 8.6 - 10.2 mg/dL INTERFACE SYSTEM AST 25 12 - 38 U/L INTERFACE SYSTEM ALKALINE PHOSPHATASE 135(H) 40 - 129 U/L INTERFACE SYSTEM BUN 14 6 - 20 mg/dL INTERFACE SYSTEM BILIRUBIN TOTAL 0.4 0.2 - 1.0 mg/dL INTERFACE SYSTEM ALBUMIN 4.3 3.4 - 4.8 g/dL INTERFACE SYSTEM TOTAL PROTEIN 7.6 6.3 - 8.6 g/dL INTERFACE SYSTEM ALT 21 0 - 41 U/L INTERFACE SYSTEM SODIUM 139 135 - 145 mmol/L INTERFACE SYSTEM POTASSIUM 4.2 3.5 - 4.9 mmol/L INTERFACE SYSTEM CHLORIDE 101 96 - 108 mmol/L INTERFACE SYSTEM CO2 32(H) 22 - 30 mmol/L INTERFACE SYSTEM 07/10/2005 9:17 AM PROCESS EQUIPMENT OPERATOR us Adnreia Wolf MD CHEMISTRY ORDERABLES Final Re sult INTERFACE SYSTEM Refer to clinic/hospital department documented in this encounter Visit Diagnoses Diagnosis Unspecified osteomyelitis, ankle and foot (CMS/HCC)- Primary Unspecified osteomyelitis, ankle and foot documented in this encounter Care Teams Semiautomatic Taper Operator Relationship Specialty Start Date End Date Andreia Wolf MD [address] [place] [id number] PCP - General 05/01/05 documented as of this encounter
--- OUTSIDE RECORDS SUMMARY | 2025-02-20 18:58 | XMS_ITS | Continuity of Care Document ---
Author Organization [facility] Address [address] [place] [address] [address] [place] [address] Phone Care Team Providers Care Vegetable Ii Farmworker Name Role Phone Darius Morales Unavailable Unavailable Procedures Procedure Date THERAPEUTIC EXERCISES NEUROMUSCULAR RE-ED MANUAL THERAPY FUNC ACTIVITY 15 MIN THERAPEUTIC EXERCISES NEUROMUSCULAR RE-ED MANUAL THERAPY FUNC ACTIVITY 15 MIN THERAPEUTIC EXERCISES NEUROMUSCULAR RE-ED MANUAL THERAPY FUNC ACTIVITY 15 MIN THERAPEUTIC EXERCISES NEUROMUSCULAR RE-ED FUNC ACTIVITY 15 MIN THERAPEUTIC EXERCISES NEUROMUSCULAR RE-ED FUNC ACTIVITY 15 MIN THERAPEUTIC EXERCISES NEUROMUSCULAR RE-ED FUNC ACTIVITY 15 MIN THERAPEUTIC EXERCISES NEUROMUSCULAR RE-ED FUNC ACTIVITY 15 MIN THERAPEUTIC EXERCISES NEUROMUSCULAR RE-ED FUNC ACTIVITY 15 MIN THERAPEUTIC EXERCISES NEUROMUSCULAR RE-ED FUNC ACTIVITY 15 MIN PT RE-EVALUATION THERAPEUTIC EXERCISES NEUROMUSCULAR RE-ED FUNC ACTIVITY 15 MIN THERAPEUTIC EXERCISES NEUROMUSCULAR RE-ED Advance Directives Directive Yes / No Effective Date File Name No Information Encounters Encounter Description Practice Location Reason(s) For Visit Diagnoses Date Provider Providers Copied on Encounter [facility], [address] [facility] [place], [place], [id number], tel:[phone] Kyle No Information Praveen Darius. [address] [facility], [address], [place], [address], . tel:[phone] Referring Provider: Fly Hunt, [address], [place], [address]. tel:[phone], [place], [place], [id number], tel:[phone] Klye No Information Praveen Darius. [address] [facility], [address], [place], [address], [place]. tel:[phone] Referring Provider: Fly Hunt, [address], [place], [address]. tel:[phone] [address], [place], [place], [id number], tel:[phone] Kyle No Information Praveen Darius. [address] [facility], [address], [place], [address], [place]. tel:[phone] Referring Provider: Fly Hunt, [address], [place], [address]. tel:[phone], [place], [place], [id number], tel:[phone] Kyle No Information Praveen Darius. [address] [facility], [address], [place], [address], [place]. tel:[phone] Referring Provider: Fly Hunt, [address], [place], [address]. tel:[phone], [place], [place], [id number], tel:[phone] Kyle No Information Praveen Darius. [address] [facility], [address], [place], [address], [place]. tel:[phone] Referring Provider: Fly Hunt, [address], [place], [address]. tel:[phone] [address], [place], [place], [address], [place] tel:[phone] Kyle No Information Praveen Darius. [address] [facility], [address], [place], [address], [place]. tel:[phone] Referring Provider: Fly Hunt, [address], [place], [address]. tel:[phone] [address], [place], [place], [address], [place] tel:[phone] [place] No Information Praveen Darius. [address] [facility], [address], [place], [address], [place]. tel:[phone] Referring Provider: Fly Hunt, [address], [place], [address]. tel:[phone] [address], [place], [place], [id number], [place] tel:[phone] Kyle No Information Praveen Darius. [address] [facility], [address], [place], [address], [place]. tel:[phone] Referring Provider: Fly Hunt, [address], [place], [address]. tel:[phone] [address], [place], [place], [id number], [place] tel:[phone] [place] No Information Praveen Darius. [address] [facility], [address], [place], [address], [place]. tel:[phone] Referring Provider: Fly Hunt, [address], [place], [address]. tel:[phone], [id number], tel:[phone] [place] No Information Saray Cadet. [address] [facility], [address], [place], [address], [place]. tel:[phone] Referring Provider: Fly Hunt, [address], [place], [address]. tel:[phone], [id number], tel:[phone] Kyle Pain in joint involving shoulder region Praveen Mccoy. [address] [facility], [address], [place], [address], [place]. tel:[phone] Referring Provider: Fly Hunt, [address], [place], [address]. tel:[phone] Family History Family Member Type Diagnosis Age At Onset No Information Payers Payer name Insurance type Covered green party ID Authoriza tion(s) [place] [id number] [facility] [id number] [facility] [id number] Social History Type Description Quantity Date Captured Comments Sex Male Smoking Status No Information Chief Complaint And Reason For Visit No Information Reason For Referral Reason For Referral No Information History Of Present Illness Encounter Date Complaint History Of Prese nt Illness No Information Functional Status Date Functional Assessmen t No Information Instructions Date Instruction Additional Infor mation No Information Assessments Type Assessment Date No Information Patient Care Teams Name Effective Dates (start - stop) Status Members No Information
--- OUTSIDE RECORDS SUMMARY | 2025-02-20 18:58 | XMS_ITS | Encounter Summary ---
Author Organization [id number] Address [address] [place] [address] Care Team Providers Care Gaming Surveillance Observer Name Role Phone Andreia Wolf MD Primary Care Provider [phone] Encounter Details Date Type Department Care Team (Late st Contact Info) Description 02/23/2005 Outpatient Historical [facility] [address] 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
--- OUTSIDE RECORDS SUMMARY | 2025-02-20 18:58 | XMS_ITS | Encounter Summary ---
Author Organization [facility] Address 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 Gender Identity Not on file Sexual Orientation Not on file documented as of this encounter Plan of Treatment Not on file documented as of this encounter Procedures Procedure Name Priority Date/Time Associated Diagnosis Comments VANCOMYCIN LEVEL TROUGH Routine 02/24/2005 8:45 PM CDT COMPREHENSIVE METABOLIC PANEL Routine 02/23/2005 10:00 PM CDT CBC WITH DIFFERENTIAL Routine 02/23/2005 7:50 PM CDT CBC WITH DIFFERENTIAL Routine 02/23/2005 7:50 PM CDT SEDIMENTATION RATE Routine 02/23/2005 7: 50 PM CDT C-REACTIVE PROTEIN Routine 02/23/2005 7: 50 PM CDT documented in this encounter Results * VANCOMYCIN LEVEL TROUGH (02/24/2005 8:45 PM CDT) VANCOMYCIN, TROUGH 10.8 5.0 - 15.0 ug/mL INTERFACE SYSTEM Comment: Vancomycin Trough Toxic Level= >15.0 ug/mL 02/24/2005 8:45 PM CDT Andreia Wolf MD CHEMISTRY ORDERABLES Final Re sult Performing Organization Address [facility] Phone Number INTERFACE SYSTEM Refer to clinic/hospital department * (ABNORMAL) COMPREHENSIVE METABOLIC PANEL (02/23/2005 10:00 PM CDT) GLUCOSE 180(H) 65 - 109 mg/dL INTERFACE SYSTEM CREATININE 1.1 0.5 - 1.3 mg/dL INTERFACE SYSTEM CALCIUM 9.2 8.6 - 10.2 mg/dL INTERFACE SYSTEM AST 18 12 - 38 U/L INTERFACE SYSTEM ALKALINE PHOSPHATASE 87 40 - 129 U/L INTERFACE SYSTEM BUN 11 6 - 20 mg/dL INTERFACE SYSTEM BILIRUBIN TOTAL 0.4 0.2 - 1.0 mg/dL INTERFACE SYSTEM ALBUMIN 3.7 3.4 - 4.8 g/dL INTERFACE SYSTEM TOTAL PROTEIN 7.3 6.3 - 8.6 g/dL INTERFACE SYSTEM ALT 22 0 - 41 U/L INTERFACE SYSTEM SODIUM 137 135 - 145 mmol/L INTERFACE SYSTEM POTASSIUM 3.7 3.5 - 4.9 mmol/L INTERFACE SYSTEM CHLORIDE 98 96 - 108 mmol/L INTERFACE SYSTEM CO2 26 22 - 30 mmol/L INTERFACE SYSTEM 02/23/2005 10:0 0 PM CDT Andreia Wolf MD CHEMISTRY ORDERABLES Final Re sult Performing Organization Address [facility] Phone Number INTERFACE SYSTEM Refer to clinic/hospital department * CBC WITH DIFFERENTIAL (02/23/2005 7:50 PM CDT) NEUTROPHILS 58 45 - 70 % INTERFAC E SYSTEM LYMPHOCYTES 36 16 - 45 % INTERFAC E SYSTEM MONOCYTES 6 3 - 13 % INTERFACE SYSTEM EOSINOPHILS 0 0 - 7 % INTERFAC E SYSTEM BASOPHILS 0 0 - 2 % INTERFACE SYSTEM NEUTROPHIL ABSOLUTE 3.95 1.90 - 7.00 K/uL INTERFACE SYSTEM LYMPHOCYTE ABSOLUTE 2.45 0.70 - 4.50 K/uL INTERFACE SYSTEM MONOCYTE ABSOLUTE 0.37 0.10 - 1.30 K/uL INTERFACE SYSTEM EOSINOPHIL ABSOLUTE 0.00 0.00 - 0.70 K/uL INTERFACE SYSTEM BASOPHILS ABSOLUTE 0.01 0.00 - 0.20 K/uL INTERFACE SYSTEM 02/23/2005 7:50 PM CDT us Fidencio Sharp MD HEMATOLOGY ORDERABLES Final Result Performing Organization Address [facility] Co de Phone Number INTERFACE SYSTEM Refer to clinic/hospital department * (ABNORMAL) CBC WITH DIFFERENTIAL (02/23/2005 7:50 PM CDT) WBC 6.8 4.0 - 9.8 K/uL INTERFACE SYSTEM RBC 4.24(L) 4.50 - 5.40 M/uL INTERFACE SYSTEM HEMOGLOBIN 13.2(L) 13.6 - 16.5 g/dL INTERFACE SYSTEM HEMATOCRIT 39.1(L) 40.0 - 48.0 % INTERFACE SYSTEM MCV 92.2 82.0 - 99.0 fL INTERFACE SYSTEM MCH 31.1 27.2 - 32.6 pg INTERFACE SYSTEM MCHC 33.8 31.5 - 35.5 % INTERFACE SYSTEM RDW 13.5 11.5 - 14.5 % INTERFACE SYSTEM RDW-STDEV 45.7 37.1 - 48.7 fL INTERFACE SYSTEM PLATELETS 190 140 - 350 K/uL INTERFACE SYSTEM MPV 10.4 9.3 - 12.4 fL INTERFACE SYSTEM 02/23/2005 7:50 PM CDT us Fidencio Sharp MD HEMATOLOGY ORDERABLES Final Result Performing Organization Address [facility] de Phone Number INTERFACE SYSTEM Refer to clinic/hospital department * (ABNORMAL) C-REACTIVE PROTEIN (02/23/2005 7:50 PM CDT) CRP 1.0(H) 0.0 - 0.8 mg/dL INTERFACE SYSTEM 02/23/2005 7:50 PM CDT Result Felipe Sharp MD CHEMISTRY ORDERABLES Final R esult Performing Organization Address [facility] de Phone Number INTERFACE SYSTEM Refer to clinic/hospital department * (ABNORMAL) SEDIMENTATION RATE (02/23/2005 7:50 PM CDT) ESR (SEDIMENTATION RATE) 52(H) 0 - 30 mm/hr INTERFACE SYSTEM 02/23/2005 7:50 PM CDT Fidencio Sharp MD HEMATOLOGY ORDERABLES Final Result Performing Organization Address [facility] de Phone Number INTERFACE SYSTEM Refer to clinic/hospital department documented in this encounter Visit Diagnoses Diagnosis 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
--- OUTSIDE RECORDS SUMMARY | 2025-02-20 18:58 | XMS_ITS | Encounter Summary ---
Author Organization [facility] Address 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
--- OUTSIDE RECORDS SUMMARY | 2025-02-20 18:59 | XMS_ITS | Encounter Summary ---
Author Organization [facility] Address 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
--- OUTSIDE RECORDS SUMMARY | 2025-02-20 18:59 | XMS_ITS | Encounter Summary ---
Author Organization [facility] Address 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
--- OUTSIDE RECORDS SUMMARY | 2025-02-20 18:59 | XMS_ITS | Encounter Summary ---
Author Organization [facility] Address 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
--- OUTSIDE RECORDS SUMMARY | 2025-02-20 18:59 | XMS_ITS | Encounter Summary ---
Author Organization [facility] Address 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) Social History Tobacco Use Types Packs/Day Years Used Date Smoking Tobacco: Never Assessed Sex and Gender Information Value Date Recorded Sex Assigned at Not on file Legal Sex Male 4:19 AM EXTRA HAND Gender Identity Not on file Sexual Orientation Not on file documented as of this encounter Plan of Treatment Not on file documented as of this encounter Visit Diagnoses Diagnosis Posttraumatic wound infection not elsewhere classified- Primary documented in this encounter Care Teams Cleaner And Preparer Relationship Specialty Start Date End Date Andreia Wolf MD [address] [place] [phone] PCP - General 05/01/05 documented as of this encounter
--- OUTSIDE RECORDS SUMMARY | 2025-02-20 18:59 | XMS_ITS | Clinical Summary ---
Author Organization [facility] Address [address] [place] [id number] Care Team Providers Care Decorating Inspector Name Role Phone Mariana Jay MD Primary Care Provide r Lamont Richter MD Unavailable Allergies Active Allergy Reactions Criticality Noted Date Comments Morphine Dizziness,Hypotension High Reaction: low bp, , Reaction: Dizziness, , Opioids - Morphine Analogues Hypotension High Reaction: Hypotension, Oxycodone Nausea only,Vomiting Low Reaction: Nausea, Vomiting, , Oxycodone-Acetaminoph en Syncope High Reaction: Syncope/Low BP, Medications potassium chloride ER 10 mEq CR capsule 3 Active tadalafiL (CIALIS) 20 mg tablet Take 1 tablet (20 mg total) by mouth daily as needed for erectile dysfunction 10 tablet 3 3 Active metoprolol tartrate (LOPRESSOR) 25 mg immediate release tabletIndication s:Paroxysmal atrial fibrillation (HCC) Take 1 tablet (25 mg total) by mouth 2 (two) times a day as needed (for attacks of atrial fib or racing heart beats.) 30 tablet 1 3 Active ketoconazole (NIZORAL) 2 % creamIndications :Onychomycosis Apply to affected areas twice daily as needed 60 g 11 4 Active inhalational spacing device (Aerochamber MV) spacerIndication s:Bronchitis Use with albuterol inhaler 1 each 4 Active albuterol HFA (PROVENTIL HFA,VENTOLIN HFA,PROAIR HFA) 90 mcg/actuation inhalerIndicatio ns:Bronchitis Inhale 2 puffs every 4 (four) hours as needed for shortness of breath or wheezing 18 g 4 Active guaiFENesin-code ine (GUAITUSS AC) liquid 100-10 mg/5 mL Take 5 mL by mouth every 4 (four) hours as needed for cough 120 mL 5 Active predniSONE (DELTASONE) 20 mg tablet Take 1 tablet (20 mg) by mouth daily 3 tablet 5 Active atorvastatin (LIPITOR) 40 mg tablet TAKE 1 TABLET(40 MG) BY MOUTH DAILY 90 tablet 1 5 Active famotidine (PEPCID) 20 mg tabletIndication s:Chronic cough TAKE 1 TABLET(20 MG) BY MOUTH EVERY NIGHT 90 tablet [address] (PROTONIX) 40 mg EC tablet TAKE 1 TABLET(40 MG) BY MOUTH DAILY 90 tablet 1 5 Active zolpidem (AMBIEN) 10 mg tablet TAKE 1 TABLET BY MOUTH EVERY NIGHT NEEDED FOR SLEEP 30 tablet 5 Active apixaban (Eliquis) 5 mg tablet Take 1 tablet (5 mg total) by mouth 2 (two) times a day Active triamcinolone (KENALOG) 0.1 % cream Apply topically 2 (two) times a day as needed for rash 80 g 5 Active Active Problems Problem Noted Date Diagnosed Date BMI 27.0-27.9,adult 04/23/2024 De Quervain's tenosynovitis, right 09/10/2023 Pericardial effusion 03/29/2023 Assessment & Plan (04/18/2023 1:10 PM CDT): follow up with cardiology Assessment & Plan (03/29/2023 6:56 AM CDT): Get the echo done and follow up with cardiology Elevated alkaline phosphatase level 10/18/2022 Assessment & Plan (10/18/2022 1:11 PM DITCH INSPECTOR): worsening Repeat labs at annual If worsening will consider ggt and US of the liver F/u at annual Non-seasonal allergic rhinitis due to pollen Assessment & Plan (09/06/2023 7:52 AM DITCH INSPECTOR): Acute problem- Encouraged to continue cetirizine 5 mg daily as directed by ENT -refill sent Follow up with ENT as scheduled-sooner prn no improvement Continue to monitor Saline rinse in the am Flonase 2 sprays each nostril, aim away from cartilage, spray once-baby sniff, switch to the other nostril and repeat. Saline rinse about 15 min before bed Continue to monitor Laryngeal spasm 08/30/2022 Assessment & Plan (06/22/2024 1:27 PM CDT): Take Pantoprazole 40 mg (Protonix), 30-60 minutes prior to any other medication, food or fluids other than water Continue pantoprazole and famotidine 50 ounces of caffeine free and soda free fluid daily Assessment & Plan (08/30/2022 8:45 PM DITCH INSPECTOR): Continue Pantoprazole and Pepcid 20 mg Start Cetirizine 5 mg daily Call if no improvement in 2-3 months to increase the Pepcid to 40 mg and if no improvement with this, will plan referral for EGD 50 ounces of caffeine free and soda free fluid daily LPR discussed and Handout provided Medicare annual wellness visit, subsequent 04/12 Assessment & Plan (04/22/2024 12:15 PM CDT): Labs reviewed [facility] F[facility] 1 year for annual Assessment & Plan (04/18/2023 4:21 PM CDT): LAbs reviewed Zoster[facility] Colonoscopy up to date F/u in 1 year for annual Assessment & Plan (04/12/2022 5:22 PM CDT): LAbs from may reviewed PSA for history of prostate cancer Colonoscopy up to date F/u in 1 year for annual PSVT (paroxysmal supraventricular tachycardia) 0 03/20/2022 Assessment & Plan (04/22/2024 12:12 PM CDT): Continue following with cardiology for management Assessment & Plan (04/18/2023 1:10 PM CDT): Continue following with cardiology for management Nonsustained ventricular tachycardia 03/20/2022 PVC's (premature ventricular contractions) 03/20 Elevated coronary artery calcium score 2 Anxiety 03/20/2022 Ascending aorta dilation 03/20/2022 Assessment & Plan (04/23/2024 3:48 PM CDT): Continue following with cardiology Assessment & Plan (04/18/2023 1:09 PM CDT): Recommend follow up with dr. Montgomery regarding this Assessment & Plan (03/28/2023 5:01 PM CDT): Recommend follow up with dr. Montgomery regarding this Assessment & Plan (04/12/2022 5:17 PM CDT): States he does not have the aorta dilation. His does. 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 Dx; H/O PAF, Atrial Bigeminy, PVC's, and First Degree AVB. DOI 07/28/2021-[facility]. Biotronik remote monitoring. First degree AV block 06/13/2021 Tricuspid valve insufficiency 11/19/2020 Assessment & Plan (11/19/2020 9:41 AM DITCH INSPECTOR): Moderate tricuspid insufficiency noted on echo. This is a common finding. In his case it is not associated with any evidence of right-sided congestive heart failure or pulmonary hypertension, and is an incidental benign finding. Pulsatile tinnitus of right ear 04/01/2019 Assessment & Plan (04/01/2019 8:02 AM CDT): CT Head Angiogram Will obtain Hearing test from the [place] Chronic cough 04/01/2019 Assessment & Plan (09/06/2023 7:49 AM DITCH INSPECTOR): Chronic problem- poorly controlled Encouraged to continue cetirizine 5 mg daily as directed by ENT Due to length of illness we will treat with antibiotic, please complete the whole course of antibiotics-no leftovers Ordered Amoxicillin 875 mg- take 1 tablet bid x 5 days Side effects discussed Please take probiotics for at least a month to help keep your gut health in check as the antibiotic kills the good bacteria along with the bad. This will help decrease the GI side effects you have from the antibiotic Continue Tessalon perles 100 mg tid prn as directed Continue Guaituss AC 5-10 mL every 4 hours prn as directed Ordered CXR Increase fluids, rest and handwashing Hot water/hot tea with honey 1 teaspoon of honey every 4 hours No sharing cups or utensils May use vicks vaporub on chest and feet as needed to help with cough Good hand washing routine Tylenol/Iibuprofen as needed for fever, body aches etc Use a humidifier, recommended steam inhalation, hot showers Saline/Salt water gargles, saline nose drops as needed Watch for worsening symptoms, i.e.increasing fever, productive cough, headache, sore throat, excessive tiredness, rash etc No sharing cups or utensils Return to office as needed or if symptoms worsen/change or don't improve in 7-10 days after completing abx Pt verbalizes understanding and all questions have been answered Assessment & Plan (08/30/2022 9:53 AM DITCH INSPECTOR): Continue Pantoprazole and Pepcid 20 mg Start Cetirizine 5 mg daily Call if no improvement in 2-3 months to increase the Pepcid to 40 mg and if no improvement with this, will plan referral for EGD 50 ounces of caffeine free and soda free fluid daily Assessment & Plan (07/03/2022 9:56 PM CDT): No improvement w/ ppi and pepcid Instructed to use flonase Chest xray ordered Referral back to ENT Possible vocal cord disorder? F/u at annual Assessment & Plan (06/25/2019 2:49 PM CDT): Continue pantoprazole in the AM and start Pepcid 20 mg at bedtime Flonase 2 sprays into each nostril while looking down over the sink, do not sniff in or blow nose after use daily in the evening Call if no improvement in 3 months Note if late night snack making coughing worse Assessment & Plan (04/01/2019 8:03 AM CDT): Continue Pantoprazole in the AM then Ranitidine 300 mg at bedtime LPR discussed and Handout provided Spondylosis of lumbar region without myelopathy or radiculopathy 06/26/2018 Lumbar post-laminectomy synd cathy L2-3 and L5-S1 decompression laminotomy 06/25/2018 History of prostate cancer 04/30/2018 Assessment & Plan (04/22/2024 12:13 PM CDT): S/p prostatectomy Continue PSA for monitoring Assessment & Plan (04/18/2023 4:19 PM CDT): S/p prostatectomy Continue PSA for monitoring Erectile dysfunction after radical prostatectomy 04/30/2018 Assessment & Plan (04/12/2022 5:18 PM CDT): Stable / clinically quiescent. Will continue to monitor. Continue with Viagra as needed H/O radical prostatectomy 04/30/2018 Chronic bilateral low back pain with bilateral s ciatica 04/30/2018 Claudication in peripheral vascular disease 04/10 Primary osteoarthritis of left knee 03/04/2018 Chronic GERD 09/18/2017 Assessment & Plan (04/22/2024 12:13 PM CDT): Stable / clinically quiescent. Will continue to monitor. continue famotidine and Protonix Assessment & Plan (04/18/2023 1:10 PM CDT): Stable / clinically quiescent. Will continue to monitor. continue famotidine and Protonix Assessment & Plan (04/12/2022 5:18 PM CDT): Stable / clinically quiescent. Will continue to monitor. 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 Will continue to monitor. Continue following with cardiology Continue with Eliquis Assessment & Plan (04/18/2023 1:10 PM CDT): Stable / clinically quiescent. Will continue to monitor. Continue following with cardiology Continue with Eliquis Assessment & Plan (04/12/2022 5:17 PM CDT): Stable / clinically quiescent. Will continue to monitor. Continue following with cardiology Continue with Eliquis Assessment & Plan (05/29/2021 11:47 AM CDT): Very low burden on recent Holter. He is on Eliquis for this. Assessment & Plan (11/19/2020 9:40 AM DITCH INSPECTOR): Long history of episodes of paroxysmal atrial fibrillation, minimally symptomatic. These have previously been managed with aspirin because of a low chads Vasc score, but now that he is over 75, his chads Vasc score has increased to two based on age alone, and anticoagulation is appropriate. Given his longstanding mild sinus bradycardia, as well as his first-degree AV block, I would not recommend Cardizem. He was reassured that his episodes of atrial fibrillation are benign and will not pose a threat to him on anticoagulation. Hypercholesterolemia 01/23/2014 Overview (12/12/2016): HYPERLIPIDEMIA NEC/NOS Assessment & Plan (10/18/2022 11:49 AM DITCH INSPECTOR): Stable / clinically quiescent. Will continue to monitor. Continue atorvastatin 40mg daily Assessment & Plan (04/12/2022 5:16 PM CDT): Stable / clinically quiescent. Will continue to monitor. Continue with Lipitor 40 mg daily Assessment & Plan (05/29/2021 11:48 AM CDT): On chronic lipid lowering therapy with good control. No changes made. Lipids from 04/05/2021 reviewed and LDL was below 70. Primary insomnia 01/23/2014 Overview (12/14/2016): INSOMNIA NEC Assessment & Plan (04/23/2024 2:44 PM CDT): Stable / clinically quiescent. Will continue to monitor. Continue ambien prn Rx sent Ilpmp reviewed Assessment & Plan (04/18/2023 1:12 PM CDT): Stable / clinically quiescent. Will continue to monitor. Continue Ambien at night Assessment & Plan (04/12/2022 5:19 PM CDT): Stable / clinically quiescent. Will continue to monitor. Continue Ambien at night He is in the process of cutting back Asteatosis cutis 09/11/2013 History of nonmelanoma skin cancer 09/11/2013 Keratosis, senilis 10/14/2012 Dermatofibroma 09/18/2011 Skin cancer 09/18/2011 Actinic keratosis 09/18/2011 Inflamed seborrheic keratosis 09/18/2011 Malignant neoplasm of prostate 01/19/2009 Overview (12/20/2017): Description: s/p RRP 12/21/08----Fisher 3+4, focal extraprostatic extension at Right base; (-) margins, T2c Assessment & Plan (04/23/2024 3:48 PM CDT): S/p removal Continue routine psa for monitoring Resolved Problems Problem Noted Date Diagnosed Date Resolved Date Change in voice 04/23/2024 09/10/2024 Assessment & Plan (04/23/2024 2:31 PM CDT): Chronic Worsening Will refer to ENT F/u prn Encounter for follow-up exam ination after completed treatment for conditions other than malignant neoplasm 09/06/2023 04/22/2024 Assessment & Plan (09/06/2023 7:53 AM DITCH INSPECTOR): Patient was seen in the urgent care setting 2 weeks ago for cough Medications reviewed and reconciled this visit Continues to have cough- ordered CXR Follow up with pcp as scheduled-sooner prn Cellulitis of finger of left hand 01/29/2023 01/29/2023 Assessment & Plan (01/29/2023 9:03 AM CDT): Keep clean with antibacterial soap Keflex sent to the pharmacy F/u in 1 week for monitoring Ingrown nail of middle finger 01/29/2023 05/07/2023 Assessment & Plan (02/05/2023 1:00 PM CDT): Improved Continue warm soaks and topical steroid for another week F/u prn Assessment & Plan (01/29/2023 10:15 AM CDT): warm soak the affected finger in warm, soapy water for 10 to 20 minutes twice daily, followed by the application of a high-potency topical corticosteroid ointment for two weeks Betamethasone 0.05% bid sent Impacted cerumen of right ear 08/30/2022 04/18/2023 Low blood pressure reading 03/20/2022 0 05/07/2023 Visit for wound check 08/07/20212022 Weakness 06/13/2021 05/07/2023 Premature atrial contractions 06/13/2021 09/10/2024 Family history of pacemaker 06/13/2021 09/10/2024 Family history of coronary artery disease 06/13/2021 09/10/2024 Palpitations 05/29/2021 09/10/2024 Assessment & Plan (05/29/2021 11:47 AM CDT): He says he is more symptomatic now than he was when I last saw him. He is known to have benign ventricular and supraventricular ectopy and rare brief episodes of atrial fibrillation for which he is on Eliquis. Will obtain a seven day monitor to determine if something different is occurring. Palpitations may be difficult to treat as his resting heart rate is in the 60s and he has first-degree AV block. Head injury, initial encounter 11/26/2020 04/22/2024 Traumatic ecchymosis of right orbit 11/26/2020 05/07/2023 Laceration of right eyebrow 11/26/2020 05/07/2023 Lumbago 08/15/2017 04/30/2018 Intertrigo 06/10/2017 04/30/2018 Onychomycosis of toenail 06/10/2017 Prostate cancer 03/19/2017 04/30/2018 Disorder of joint 01/23/2014 03/19/2017 Overview (12/12/2016): ARTHROPATHY NOS-UNSPEC Encounters Date Type Department Care Team Description 01/20/2025 10:45 AM CDT Office Visit [facility] [address] [facility] [address] [place] [phone] Jonathon Govea PA Eczema, unspecified type (Primary Dx); Xerosis cutis; Pruritus, unspecified; Tick bite of left thigh, initial encounter; History of nonmelanoma skin cancer from Last 3 Months Immunizations Immunization Administration Dates Next Due Influenza Virus Vaccine Trivalent Mdv 06/09/2020 Influenza, Quad, Adjuvantate d, Intramuscular 09/14/2021 Influenza, Quadrivalent, Hig h Dose, Preservative Free, Intrr 09/10/2024(Deferred: Patient Refused),07/15/2020 Influenza, Trivalent, High D ose, Split, Preservative Free, Intramuscular 09/05/2019,07/16/2018 Influenza, Trivalent, IM (MDV) 4,08/06/2012,05/28/2011,05/10 Influenza, Unspecified 07/23/2023,2022(Deferred: Patient Refused),10/18/2022(Deferred: Patient Refused),07/02/2022(Deferred: Patient Refused),04/09/2022(Deferred: Patient Refused),04/09/2022(Deferred: Patient Refused),09/21/2021,08/22/2021, 021,05/02/2021(Deferred: Patient Refused),07/11/2020(Deferred: Patient Refused),06/29/2020,08/11/2019(Deferre d: Patient ill today),07/21/2018,09/18/2017(Deferred: Patient Refused),08/19/2013 Pfizer SARS-CoV-2 Monovalent Vaccination (12+ Yrs) PURPLE 11/10/2020,10/20/2020 Pneumococcal Conjugate PCV 13 09/12/2015 Pneumococcal Polysaccharide PPV23 08/19/2013,09/2010 Pneumococcal, Unspecified 08/19/2013 TD Preservative Free 09/09/2012 Td, Unspecified 08/19/2013 Tdap 12/18/2022,08/19/2013 ZOSTER Recombinant 12/18/2022,12/12/2021 Surgical History Surgery Date Site/Laterality Comments KNEE ARTHROSCOPY Arthroscopy knee VASECTOMY Vasectomy OTHER SURGICAL HISTORY rt 1st toe joint replacement OTHER SURGICAL HISTORY rt ankle fracture OTHER SURGICAL HISTORY Cancer, prostate: resection [facility] 2008 TONSILLECTOMY Tonsillectomy ANKLE SURGERY right ankle surgery OTHER SURGICAL HISTORY broken facial bones HIP ARTHROPLASTY Hip arthroplasty OTHER SURGICAL HISTORY cherry shoulder replacement rotmann HIP ARTHROPLASTY Hip replacement Medical History Medical History Date Comments Hx Other Medical fractured orbit Hyperlipidemia Hyperlipidemia Malignant neoplasm of prostate (HCC) Cancer, prostate Hx Other Medical gastric reflux Hx Other Medical osteoarthritis Atrial fibrillation (HCC) MRSA (methicillin resistant Staphylococcus aureu s) Family History Medical History Relation Name Comments Coronary artery disease Brother 1 Mayank Hist ory of stent Pacemaker Brother 1 Mayank Prostate cancer Brother 2 Cancer -pros staley; Depression Brother 3 Depression; Other Brother 4 Senile Dementia ; Coronary artery disease Brother 5 Ananth Pat nary Artery Disease; stents Other Father Alive and well; Heart attack Mother heart attack; C ause of : heart attack/Myocardial Infarction; Heart disease Mother Heart disease; Arthritis Other 1 Family history of arthritis; Cancer Other 2 Family history of cancer; Diabetes Other 3 Family history of diabetes; Heart disease Other 4 Family history of heart problems; Lung disease Other 5 Family history of lung problems; Relation Name Status Comments Brother 1 Mayank Alive Brother 2 Brother 3 Brother 4 Brother 5 Ananth Father Alive Mother Other 1 Other 2 Other 3 Other 4 Other 5 Social History Tobacco Use Types Packs/Day Years Used Date Smoking Tobacco: Never Smokeless Tobacco: Never Tobacco Cessation:Counseling Given: Not Answered Alcohol Use Standard Drinks/Week Comments No 0 (1 standard drink = 0.6 oz pur e alcohol) Social Connection and Isolat ion Panel [NHANES] Answer Date Recorded In a typical week, how many times do you talk on the phone with family, friends, or neighbors? More than three times a week 06/08/2021 How often do you get togethe r with friends or relatives? More than three times a week 06/08/2021 Attends Sikh Services Not on file 06/08 Active Member of Clubs or Organizations Not on f ile 06/08/2021 Attends Club or Organization Meetings Not on sergio e 06/08/2021 Are you , , di vorced, , never , or living with a partner? 06/08/2021 AUDIT-C Answer Date Recorded Q1: How often do you have a drink containing alc ohol? Never 06/01/2024 Average Number of Drinks Not on file 024 Frequency of Binge Drinking Not on file 05/11 Overall Financial Resource Strain (CARDIA) Answe r Date Recorded How hard is it for you to pa y for the very basics like food, housing, medical care, and heating? Not very hard 06/08/2021 PHQ-2 Answer Date Recorded PHQ-2 Total Score (If total score is 3 or more points, staff should administer the PHQ-9) 0 09/10/2024 Exercise Vital Sign Answer Date Recorde d On average, how many days pe r week do you engage in moderate to strenuous exercise (like a brisk walk)? 5 days 06/08/2021 On average, how many minutes do you engage in exercise at this level? 20 min 06/08/2021 Hunger Vital Sign Answer Date Recorded Within the past 12 months, y ou worried that your food would run out before you got the money to buy more. Never true 06/08/20 21 Within the past 12 months, t he food you bought just didn't last and you didn't have money to get more. Never true 06/08/2021 PRAPARE - Transportation Answer Date Re corded In the past 12 months, has l ack of transportation kept you from medical appointments or from getting medications? No 05/12 In the past 12 months, has l ack of transportation kept you from meetings, work, or from getting things needed for daily living? No 06/08/2021 Housing Stability Vital Sign Answer Emeka e Recorded In the last 12 months, was t here a time when you were not able to pay the mortgage or rent on time? No 06/08/2021 In the last 12 months, how many places have you lived? 1 06/08/2021 In the last 12 months, was t here a time when you did not have a steady place to sleep or slept in a intermediate (including now)? No 06/08/2021 Personal Safety Answer Date Recorded Have you ever been in or are you currently in a harmful physical or emotional relationship or is someone making you feel afraid or unsafe? Denies 11/20/2023 Sex and Gender Information Value Date Recorded Sex Assigned at Not on file Legal Sex Male 9:19 AM DITCH INSPECTOR Gender Identity Not on file Sexual Orientation Not on file Obstetrics History Last Filed Vital Signs Vital Sign Reading Time Taken Comments Blood Pressure 138/74 09/10/2024 11:35 AM DITCH INSPECTOR Pulse 64 09/10/2024 11:35 AM DITCH INSPECTOR Temperature 36.6 C (97.9 F) 09/10/2024 11:35 AM DITCH INSPECTOR Respiratory Rate 16 09/10/2024 11:35 AM DITCH INSPECTOR Oxygen Saturation 98% 09/10/2024 11:35 AM DITCH INSPECTOR Inhaled Oxygen Concentration - - Weight 78.3 kg (172 lb 9.6 oz) 09/10/2024 11:35 AM DITCH INSPECTOR Height 170.2 cm (5' 7) 09/10/2024 11:35 AM DITCH INSPECTOR Body Mass Index 27.03 09/10/2024 11:35 AM DITCH INSPECTOR Plan of Treatment Health Maintenance Due Date Last Done Comments Hepatitis B Screening 1958 Covid-19 Vaccine (2023-10 5 season) 2024 11/10/2020, 10/20/2020 Prostate Cancer Screening-PSA 04/20/2025, 03/22/2023, 10/01/2022, Additional history exists Well Visit 65+ 04/23/2025 04/23/2024, 04/09, 04/12/2022, Additional history exists Influenza Vaccine (Season Ended) 2025 07/23/2023, 09/21/2021, 09/14/2021, Additional history exists Depression Screening 09/10/2025 09/10/2024, 04/23/2024, 09/05/2023, Additional history exists Fall Risk Assessment 09/10/2025 09/10/2024, 04/23/2024, 09/05/2023, Additional history exists Colon Cancer Screening-Colonoscopy 07/10/2026 07/10/2016, 07/10/2016 DTaP/Tdap/Td Vaccine (4 - Td or Tdap) 12/18/2032 12/18/2022, 08/19/2013, 08/19/2013, Additional history exists Pneumococcal vaccine 65+ Completed 016, 08/19/2013, 08/19/2013, Additional history exists Colon Cancer Screening-CT Colonography Discontinued 07/10/2016, 07/10/2016 Colon Cancer Screening-DNA Stool Discontinued 07/10/20 16, 07/10/2016 Colon Cancer Screening-FIT Discontinued 07/10/2016, Colon Cancer Screening-Sigmoidoscopy Discontinued 07/10/2016, 07/10/2016 Zoster Vaccine Completed 12/18/2022, 12/12/2021 Procedures Procedure Name Priority Date/Time Associated Diagnosis Comments PSA SCREEN Routine 04/20/2024 4:17 PM CDT Screening for prostate cancer HM COLONOSCOPY Routine 07/10/2016 from Last 3 Months or Most Recently Relevant to Health Maintenance Results * PSA screen (04/20/2024 4:17 PM CDT) PSA-Total <0.10 <=6.20 ng/mL Comment: Interpretive Data AGE SEX REFERENCE INTERVAL 0 minutes-150 years Female None 0 minutes-49 years Male None 50-59 years Male 0-3.90 60-69 years Male 0-5.40 70-79 years Male 0-6.20 80-150 years Male 0-6.20 The [employer]ia PSA Total assay procedure was used. Results from different manufacturers or methods may not be comparable. Serial testing should be performed using the same method. Current interpretive data last revised 22. Blood 04/20/2024 4:17 PM CDT 04/20/2024 4:20 PM CDT Mariana Jay MD LAB BLOOD ORDERABLES Final Result [facility] [facility] [place] [address] * COLONOSCOPY (07/10/2016) Colonoscopy Normal Historical Provider HEALTH MAINTENANCE Final Result from Last 3 Months or Most Recently Relevant to Health Maintenance Insurance MEDICARE [facility] MEDICARE [place] [facility] [place] MEDICARE [place] [employer] OOS Member Subscriber Plan / Payer (Ef fective 2010-Present) Name:Dat Fuentes Relation to Subscriber:Self Name:Dat Fuentes Payer ID:[id number] (NAIC) Type:[facility] Address: [facility] [address] [id number] Care Teams Decorating Inspector Relationship Specialty Start Date End Date Mariana Jay MD [address] [place] [address] DR BOLAÑOS [address] [place] [address] PCP - General Family Medicine 04/12/22 [place] [id number] [address] Consulting Physician Cardiovascular Disease 04/23/24
--- OUTSIDE RECORDS SUMMARY | 2025-02-20 18:59 | XMS_ITS | Encounter Summary ---
Author Organization [facility] Address [address] [place] [address] Care Team Providers Care Brand Strategist Name Role Phone Andreia Wolf MD Primary Care Provider [phone] Encounter Details Date Type Department Care Team (Late st Contact Info) Description 02/08/1999 Outpatient Historical [facility] AUDIOLOGY Andreia Wolf MD [address] [place] [address] Unspecified hearing loss (Primary Dx) Social History Tobacco Use Types Packs/Day Years Used Date Smoking Tobacco: Never Assessed Sex and Gender Information Value Date Recorded Sex Assigned at Not on file Legal Sex Male 4:19 AM TOOL COORDINATOR Gender Identity Not on file Sexual Orientation Not on file documented as of this encounter Plan of Treatment Not on file documented as of this encounter Visit Diagnoses Diagnosis Unspecified hearing loss- Primary documented in this encounter Care Teams Brand Strategist Relationship Specialty Start Date End Date Andreia Wolf MD [address] [place] [address] PCP - General 05/01/05 documented as of this encounter
--- OUTSIDE RECORDS SUMMARY | 2025-02-20 18:59 | XMS_ITS | Referral Summary ---
Author Organization [facility] Address [address] [place] [address] Care Team Providers Care Hydro Station Operator Name Role Phone Mariana Jay MD Primary Care Provide r Lamont Richter MD Unavailable Encounters Date Type Department Care Team Description 01/20/2025 10:45 AM CDT Office Visit [facility] [address] [place] [address] Jonathon Govea PA Eczema, unspecified type (Primary Dx); Xerosis cutis; Pruritus, unspecified; Tick bite of left thigh, initial encounter; History of nonmelanoma skin cancer from Last 3 Months Allergies Active Allergy Reactions Criticality Noted Date [...] 10/18/2022 Assessment & Plan (10/18/2022 1:11 PM ROBOTIC MAINTENANCE TECHNICIAN): worsening Repeat labs at annual If worsening will consider ggt and US of the liver F/u at annual Non-seasonal allergic rhinitis due to pollen Assessment & Plan (09/06/2023 7:52 AM ROBOTIC MAINTENANCE TECHNICIAN): Acute problem- Encouraged to continue cetirizine 5 [...] daily Assessment & Plan (08/30/2022 8:45 PM ROBOTIC MAINTENANCE TECHNICIAN): Continue Pantoprazole and Pepcid 20 mg Start [...] Plan (04/12/2022 5:22 PM CDT): LAbs from january reviewed PSA for history of prostate cancer [...] by mistake and will confirm with his brick paving checker Status post placement of implantable loop record er 07/31/2021 Overview (07/31/2021): Biotronik-Biomonitor III. Dx; H/O PAF, Atrial Bigeminy, PVC's, and First Degree AVB. DOI 07/28/2021-[place]. Biotronik remote monitoring. First degree AV block 06/13/2021 Tricuspid valve insufficiency 11/19/2020 Assessment & Plan (11/19/2020 9:41 AM ROBOTIC MAINTENANCE TECHNICIAN): Moderate tricuspid insufficiency noted on echo. This is a common finding. In his case it is not associated with any evidence of right-sided congestive heart failure or pulmonary hypertension, and is an incidental benign finding. Pulsatile tinnitus of right ear 04/01/2019 Assessment & Plan (04/01/2019 8:02 AM CDT): CT Head Angiogram Will obtain Hearing test from the MD Chronic cough 04/01/2019 Assessment & Plan (09/06/2023 7:49 AM ROBOTIC MAINTENANCE TECHNICIAN): Chronic problem- poorly controlled Encouraged to continue [...] answered Assessment & Plan (08/30/2022 9:53 AM ROBOTIC MAINTENANCE TECHNICIAN): Continue Pantoprazole and Pepcid 20 mg Start [...] this. Assessment & Plan (11/19/2020 9:40 AM ROBOTIC MAINTENANCE TECHNICIAN): Long history of episodes of paroxysmal atrial [...] NEC/NOS Assessment & Plan (10/18/2022 11:49 AM ROBOTIC MAINTENANCE TECHNICIAN): Stable / clinically quiescent. Will continue to [...] prostate 01/19/2009 Overview (12/20/2017): Description: s/p RRP 12/21/08----[place] 3+4, focal extraprostatic extension at Right base; [...] 04/22/2024 Assessment & Plan (09/06/2023 7:53 AM ROBOTIC MAINTENANCE TECHNICIAN): Patient was seen in the urgent care [...] joint 01/23/2014 03/19/2017 Overview (12/12/2016): ARTHROPATHY NOS-UNSPEC Immunizations Immunization Administration Dates Next Due Influenza [...] Unspecified 08/19/2013 Tdap 12/18/2022,08/19/2013 ZOSTER Recombinant 12/18/2022,12/12/2021 Social History Tobacco Use Types Packs/Day Years [...] than three times a week 06/08/2021 Attends Faith Services Not on file 06/08 Active Member [...] place to sleep or slept in a alf (including now)? No 06/08/2021 Personal Safety Answer Date Recorded Have you ever been in or are you currently in a harmful physical or emotional relationship or is someone making you feel afraid or unsafe? Denies 11/20/2023 Sex and Gender Information Value Date Recorded Sex Assigned at Not on file Legal Sex Male 9:19 AM ROBOTIC MAINTENANCE TECHNICIAN Gender Identity Not on file Sexual Orientation Not on file Last Filed Vital Signs Vital Sign Reading Time Taken Comments Blood Pressure 138/74 09/10/2024 11:35 AM ROBOTIC MAINTENANCE TECHNICIAN Pulse 64 09/10/2024 11:35 AM ROBOTIC MAINTENANCE TECHNICIAN Temperature 36.6 C (97.9 F) 09/10/2024 11:35 AM ROBOTIC MAINTENANCE TECHNICIAN Respiratory Rate 16 09/10/2024 11:35 AM ROBOTIC MAINTENANCE TECHNICIAN Oxygen Saturation 98% 09/10/2024 11:35 AM ROBOTIC MAINTENANCE TECHNICIAN Inhaled Oxygen Concentration - - Weight 78.3 kg (172 lb 9.6 oz) 09/10/2024 11:35 AM ROBOTIC MAINTENANCE TECHNICIAN Height 170.2 cm (5' 7) 09/10/2024 11:35 AM ROBOTIC MAINTENANCE TECHNICIAN Body Mass Index 27.03 09/10/2024 11:35 AM ROBOTIC MAINTENANCE TECHNICIAN Plan of Treatment Not on file Procedures Procedure Name Priority Date/Time Associated Diagnosis Comments PSA SCREEN Routine 04/20/2024 4:17 PM CDT Screening for prostate cancer COLONOSCOPY Routine 07/10/2016 from Last 3 Months [...] 4:17 PM CDT 04/20/2024 4:20 PM CDT us Mariana Jay MD LAB BLOOD ORDERABLES Final Result [facility] Department [place] [address] * COLONOSCOPY (07/10/2016) Colonoscopy Normal us Historical Provider HEALTH MAINTENANCE Final Result from Last 3 Months or Most Recently Relevant to Health Maintenance Insurance MEDICARE Code [place] [facility] OOS MEDICARE [place] [employer] OOS MEDICARE [facility] OOS Care Teams Hydro Station Operator Relationship Specialty Start Date End Date Mariana Jay MD 2 [facility] [address] [address] PCP - General Family Medicine 04/12/22 [place] [id number] [address] Consulting Physician Cardiovascular Disease 04/23/24
--- OUTSIDE RECORDS SUMMARY | 2025-02-20 19:01 | XMS_ITS | CONTINUITY OF CARE DOCUMENT ---
Author Name colby bowman Address Unknown Organization [facility] Address [address] [facility] [address] [place] [address] Phone [phone] Care Team Providers Care Film Process Operator Name Role Phone Lamont Richter MD Unavailable [phone] Lamont Richter MD Unavailable [phone] Mariana Vazquez MD Unavailable PROBLEMS Condition Status [...] In-person encounter Office Visit Lamont Richter MD [facility] Office - In-person encounter Office Visit Lamont Richter MD [facility] Mild OSATricuspid regurgitation, moderate - In-person encounter Office Visit Lamont Richter MD [facility] Atrial fib paroxysmalShortness of breathSnoring - ? sleep apnea VITAL SIGNS Date Observation Value Provider Body Mass Index (Ratio) 26.78 kg/m2 Tio Sahu blood pressure, diastolic 75 mm[Hg] Ke [facility] blood pressure, systolic 125 mm[Hg] [facility] saturation, oximetry 99 % Letitia [facility] pulse rate 55 /min Letitia Agustin [facility] weight E&M 171 [lb_av] Letitia Agsutin height E&M 67 [in_i] Letitia Agustin Body [...] kLogic blood pressure, cuff size regular Fa [facility] Leyva blood pressure, diastolic 68 [...] Payer name Policy type / Coverage type [place] red green party ID [facility] [id number] [place] MED[place] PART B Medicare [id number] ADVANCE DIRECTIVES Name Date DISCUSSED - NO [...]
[2025-02-20 19:02] VITALS: BP 135/69; PULSE 61; RESP 20; TEMP 36.6; O2SAT 100
--- OUTSIDE RECORDS SUMMARY | 2025-02-20 19:02 | XMS_ITS | Continuity of Care Document ---
Author Organization [facility] Address [address] [place] [address] [address] [place] [address] Phone Care Team Providers Care Signal Supervisor Name Role Phone Darius Morales Unavailable Unavailable [...] Diagnoses Date Provider Providers Copied on Encounter [facility], [address], [place], [place], [id number], tel:[phone] Kyle No Information Praveen Darius. [address] [facility], [address], [place], [address], . tel:[phone] Referring Provider: Fly Hunt, [address], [place], [address]. tel:[phone], [place], [place], [id number], tel:[phone] Kyle No Information Praveen Darius. [address] [facility], [address], [place], [address], [place]. tel:[phone] Referring Provider: Fly Hunt, [address], [place], [address]. tel:[phone] [address], [place], [place], [id number], tel:[phone] Kyle No Information Praveen Darius. [address] [facility], [address], [place], [address], [place]. tel:[phone] Referring Provider: Fly Hunt, [address], [place], [address]. tel:[phone], [place], [place], [id number], tel:[phone] Kyle No Information Praveen Darius. [address] [facility], [address], [place], [address], [place]. tel:[phone] Referring Provider: Fly Hunt, [address], [place], [address]. tel:[phone], [place], [place], [id number], tel:[phone] Kyle No Information Praveen Darius. [address] [facility], [address], [place], [address], [place]. tel:[phone] Referring Provider: Fly Hunt, [address], [place], [address]. tel:[phone] [address], [place], [place], [id number], [place] tel:[phone] Kyle No Information Praveen Darius. [address] [facility], [address], [place], [address], [place]. tel:[phone] Referring Provider: Fly Hunt, [address], [place], [address]. tel:[phone] [address], [place], [place], [id number], [place] tel:[phone] [place] No Information Praveen Darius. [address] [facility], [address], [place], [address], [place]. tel:[phone] Referring Provider: Fly Hunt, [address], [place], [address]. tel:[phone] [address], [place], [place], [id number], [place] tel:[phone] Kyle No Information Praveen Darius. [address] [facility], [address], [place], [address], [place]. tel:[phone] Referring Provider: Fly Hunt, [address], [place], [address]. tel:[phone] [address], [place], [place], [id number], [place] tel:[phone] [place] No Information Praveen Darius. [address] [facility], [address], [place], [address], [place]. tel:[phone] Referring Provider: Fly Hunt, [address], [place], [address]. tel:[phone], [id number], tel:[phone] [place] No Information Saray Cadet. [address] [facility], [address], [place], [address], [place]. tel:[phone] Referring Provider: Fly Hunt, [address], [place], [address]. tel:[phone], [id number], tel:[phone] Kyle Pain in joint involving shoulder region Praveen Mccoy. [address] [facility], [address], [place], [address], [place]. tel:[phone] Referring Provider: Fly Hunt, [address], [place], [address]. tel:[phone] Family History Family Member Type Diagnosis Age At Onset No Information Payers Payer name Insurance type Covered republican ID Authoriza tion(s) [place] [id number] [facility] [id number] [address] [facility] [id number] Social History Type Description Quantity Date Captured [...]
--- NOTE | 2025-02-20 19:18 | ED.FALL ---
HPI - Fall General Chief Complaint: Fall Stated Complaint: fall, left hand/knee,rib, right shoulder Time Seen by Provider: 02/20/25 19:10 Source: patient and RN notes reviewed Mode of arrival: ambulatory Limitations: no limitations History of Present Illness HPI Narrative: 84-year-old male presents Express Care complaining of fall today. Said fall occurred approximately 1-2 hours ago. Patient was in the laundry room when he tripped over a tote and fell over and landed on his left side. Patient denies hitting his head, losing consciousness, neck pain, headaches, dizziness, vision changes, lightheadedness, or back pain. Patient does take Eliquis for afib. Patient is c/o left knee pain, left lower rib pain, right shoulder pain, and left wrist, left hand pain. Patient reports swelling over his left wrist. Patient denies any numbness or tingling, chest pain, shortness of breath, slurred speech, focal weakness, facial droop, or difficulty breathing. Related Data Home Medications ?Medication ?Instructions ?Recorded ?Confirmed ?Last Taken ?Type apixaban 5 mg tablet (Eliquis) 5 mg PO BID 07/17/21 07/27/21 07/25/21 History atorvastatin 40 mg tablet 40 mg PO DAILY 07/17/21 07/27/21 07/27/21 History famotidine 20 mg tablet 20 mg PO HS 07/17/21 07/27/21 07/27/21 History pantoprazole 40 mg tablet,delayed 40 mg PO DAILY 07/17/21 07/27/21 07/27/21 History release zolpidem 10 mg tablet 10 mg PO HS 07/17/21 07/27/21 07/27/21 History Allergies Allergy/AdvReac Type Severity Reaction Status Date / Time acetaminophen (From Percocet) Allergy Hypotension Verified 02/20/25 19:07 morphine AdvReac Hypotension Verified 02/20/25 19:07 Opioids - Morphine Analogues AdvReac Hypotension Verified 02/20/25 19:07 oxycodone AdvReac Nausea and Verified 02/20/25 19:07 Vomiting Review of Systems Review of Systems: CONSTITUTIONAL: Denies fever, chills, or sweats. EYES: Denies visual changes, redness, or discharge. ENT: Denies rhinorrhea, congestion, sore throat, or otalgia. CARDIOVASCULAR: Denies chest pain, palpitations, syncope, lightheadedness, dizziness or edema. RESPIRATORY: Denies cough, wheezing, or dyspnea. GASTROINTESTINAL: Denies abdominal pain, nausea, vomiting, or diarrhea. GENITOURINARY: Denies dysuria or hematuria. SKIN: Denies rash or itching. MUSCULOSKELETAL: Denies back pain, joint pain, or myalgia. Positive for left wrist pain and swelling, left hand pain, right shoulder pain, left knee pain, left rib pain. NEUROLOGIC: Denies headache, numbness, focal weakness, slurred speech, facial droop or weakness. PSYCHIATRIC: Denies anxiety or depression. All other systems reviewed are negative, except as documented in HPI. PMFSH Social History Social History Smoking status: Never smoker Substance use type: does not use Living arrangements: with family Spiritual care concerns: No Comments At the time of my signature, I reviewed and agree with the nursing past medical, surgical, social, and family history. There is no relevant family history pertinent to the patient complaint. Exam Narrative: GENERAL: This is a well-nourished, well-developed adult, in no apparent distress. They are non ill-appearing, nontoxic appearing. HEAD: normocephalic, atraumatic. No Strong signs or raccoon eyes. EYES: Sclera clear/white. Conjunctiva normal. Vision is grossly intact. Extraocular movements intact. Pupils PERRLA EARS: External ears normal, Hearing grossly intact. NOSE: External nose normal THROAT: Mucous membranes moist NECK: Neck supple, non-tender without lymphadenopathy, masses or thyromegaly. No cervical point tenderness, crepitus, or step-offs. CHEST WALL: Tenderness to palpation to the left lower anterior chest wall. No paradoxical movements or flail chest segment. No Bruising or swelling. CARDIOVASCULAR: Regular rate and rhythm without murmurs, gallops, or rubs. RESPIRATORY: Clear to auscultation. Breath sounds equal bilaterally. No wheezes, rales, or rhonchi. Respiratory rate normal, respiratory effort nonlabored, no respiratory distress GASTROINTESTINAL: Abdomen soft, non-tender, nondistended. Bowel sounds are active. No hepato-splenomegaly, or palpable masses. No guarding. No bruising. SKIN: warm, Dry, intact with no suspicious lesions or rash, good texture and turgor. Capillary refill less than 2 seconds NEURO: awake, alert, and oriented to person, place and time. There were no obvious focal neurologic abnormalities. EXTREMITIES: Right shoulder: No pain through full range of motion. Tenderness to the proximal humerus. No obvious deformity, swelling, bruising, redness. Right radial pulse 2 +palpable. Neurovascular status intact distal injury. Left knee: Bony tenderness to the distal medial femur. No valgus or varus laxity. No pain through full range of motion of left knee. Left popliteal pulse 2 +and palpable. Left hand/wrist: There is swelling throughout the posterior wrist. Tender to palpation throughout wrist. Mild swelling to the proximal posterior hand. Bony tenderness and hand. Patient is able to make a fist, stop sign, thumbs-up sign, and okay sign. Ulnar and radial nerve distribution intact. Neurovascular status intact distal injury. Left radial pulse 2 +and palpable. BACK: Nontender without deformity. Course Course Emergency Course: Portions of this record may have been created with voice recognition software Level of Care: Express Care Visit Vital Signs Vital signs: Vital Signs Temperature 97.9 F 02/20/25 19:02 Pulse Rate 61 02/20/25 19:02 Respiratory Rate 20 02/20/25 19:02 Blood Pressure 135/69 02/20/25 19:02 Pulse Oximetry 100 02/20/25 19:02 Oxygen Delivery Room Air 02/20/25 19:02 Temperature 97.9 F 02/20/25 19:02 Pulse Rate 61 02/20/25 19:02 Respiratory Rate 20 02/20/25 19:02 Blood Pressure 135/69 02/20/25 19:02 Pulse Oximetry 100 02/20/25 19:02 Oxygen Delivery Room Air 02/20/25 19:02 Reviewed Transfer Transfered to: [facility] Transportation: ALS Transfer rationale: Near syncope, fall, on blood thinners, requiring higher level care Accepting physician: Dr. Ellis MDM - Fall MDM Narrative Medical decision making narrative: Patient does take blood thinners but adamantly denies hitting his head or have any neck or back pain. No apparent injury to patient's head or face. While patient was taking x-ray patient stated he began to feel hot, lightheaded felt like he was going to pass out. Patient appealed pale, cool, diaphoretic. Patient placed on stretcher in Trendelenburg position immediately. No syncopal episode occurred, patient is recovering well. Patient's color improved, patient no longer diaphoretic. Patient's vital signs were monitored. Patient's condition remained stable. Likely a vasovagal episode. Three other for x-rays were completed. X-ray of wrist was not completed due to patient's symptoms. However given the patient's fall today, being on blood thinners, and near-syncope episode during imaging, it is recommend he seek a higher level care and proceed immediately to the ER. Patient is agreeable to [facility] ER. Call over to [facility] ER spoke to Malathi SERRANO who is aware this patient and Dr. Ellis who accept this patient for transfer. Patient is to go by ALS ambulance. Ambulance is contacted. A disc of x-ray images were burned to be taken over to [facility] ER. No additional testing performed due to quick EMS arrival. Patient left in stable condition. Differential Diagnosis Differential diagnosis: Likely syncope and other (Head injury, fracture, hemothorax, rib fracture) Critical Care Time Critical Care Time Critical Care Time: No Discharge Plan Discharge Clinical Impression: Fall, Near syncope Patient Disposition: Acute Care Hospital Condition: Stable Patient Language: Welsh Prescriptions: No Action atorvastatin 40 mg tablet 40 mg PO DAILY famotidine 20 mg tablet 20 mg PO HS pantoprazole 40 mg tablet,delayed release (DR/EC) 40 mg PO DAILY zolpidem 10 mg tablet 10 mg PO HS Eliquis 5 mg tablet 5 mg PO BID Follow-up/Referrals: Pierre,MD Mariana [Primary Care Provider] - Time of Disposition: 20:02
[2025-02-20 19:52] VITALS: BP 59/37; PULSE 55; RESP 20; O2SAT 96
[2025-02-20 19:56] VITALS: BP 117/56; PULSE 46; RESP 16; O2SAT 97
[2025-02-20 20:04] VITALS: BP 117/56; PULSE 57; RESP 16; O2SAT 96
--- NOTE | 2025-02-20 20:44 | PC.NURSE ---
1947 Called to radiology per Saray pt feeling like going to pass out. Found pt in chair pale, diaphoretic with no LOC pt talking to staff cool cloth applied to head and neck. Amber Barrientos in room to see pt.VS obtained at 1951 BP 59/37 HR 55 RR 16 spo2 97%. Pt assisted to stretcher by staff and placed in Trendelenburg. VS obtained at 1955 BP 117/56 HR 46 RR 16 SPo2 96% Ambulance called. Family notified of pt to be transferred to [facility]. 2003 VS obtained BP 117/56 HR 57 RR 16 SPo2 96%. Ems arrived 2004. Report given. Belongings accounted for and pt left per ems at 2009.
== END 2025-02-20 20:10 | disposition short-term general hospital (02) ==
PROVIDERS: PCP Family Medicine
DX: R55 Syncope and collapse (principal); W18.09XA Striking against other object with subsequent fall, initial encounter; M25.562 Pain in left knee; R07.89 Other chest pain; M79.621 Pain in right upper arm; Z79.01 Long term (current) use of anticoagulants; I48.91 Unspecified atrial fibrillation; K21.9 Gastro-esophageal reflux disease without esophagitis; Z85.828 Personal history of other malignant neoplasm of skin; Z90.79 Acquired absence of other genital organ(s)
CPT/HCPCS: 71101; 73030; 73564; 99215; G0463